=== PATIENT | female | born 1945 | race Caucasian/White ===

== ENCOUNTER 2022-12-31 17:20 | Emergency (ER) | payer OTHER, MEDICARE ==
--- OUTSIDE RECORDS SUMMARY | 2022-12-31 17:25 | XMS REPORT | Continuity of Care Document ---
:1945 Author Organization [facility] t Address [address] [place] [address] [place] [id number] Care Team Providers Name Role Phone Tere Sinha Primary Care Physician Tere Sinha Attending Clinician NIKKO LEVI Attending Clinician Unavailable EUGENE LINDER Attending Clinician Unavailable Eugene Linder Attending Clinician VISIT, NURSE COLE PRETTY Attending Clinician Unavailable Marine Galindo Attending Clinician Payers Payer Name Policy Type Policy Number Effective Date Expiration Date Harshad roach MEDICARE PART A [id number] 2010 AND B 00:00:00 Problems Condition Condition Condition Status Onset Resolution Last Treating Co mments Source Name Details Category Date Date Treatment Clinician Date Requires Requires Diagnosis Active 2022-09-08 Memoria vaccinatio vaccinatio 09-05 14:29:09 l n n Active 00:00: Balta 09/05/2022 00 Diagnosis 09/08/2022 [facility] [place] History of History Diagnosis Active 2022-09-08 Memoria - of - - 14:29:09 l pneumonia pneumonia 00:00: Jordyn rubi (context-d (context-d 00 ependent ependent category) category) Active 09/05/2022 Diagnosis 09/08/2022 [facility] 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 09-05 14:29:09 l (disorder) (disorder) 00:00: He rmann Active 00 09/05/2022 Diagnosis 09/08/2022 [facility] Group[facility] CTA CHEST CTA CHEST Diagnosis Active 2021-01-21 Memoria PULMONARY PULMONARY 01-18 10:53:00 l EMBOLISM EMBOLISM 00:00: Ben n Active 00 01/18/2021 [facility] I26.99 I26.99 Diagnosis Active 2021-01-19 Me moria OTHER OTHER 01-18 15:07:00 l PULMONARY PULMONARY 00:00: Herm greyson EMBOLISM EMBOLISM 00 WITHOUT WITHOUT Active 01/18/2021 [facility] LT HEART LT HEART Diagnosis Active 2019-02-14 Memoria CATH, CATH, 02-11 05:46:00 l RADIAL RADIAL 00:00: [place] APPROACH APPROACH 00 Active 02/11/2019 [facility] R06.02 - R06.02 - Diagnosis Active 2019-02-04 Memoria SHORTNESS SHORTNESS 02-03 11:39:00 l OF BREATH OF BREATH 00:01: Herm greyson Active 00 02/03/2019 ANTWON Rodriguez Hypercalce Hypercalc Problem Active 2022-09-08 Memoria michelle emia 08-11 14:29:09 l (disorder) (disorder) 00:00: He rmann Active 00 08/11/2014 Problem 09/08/2022 Data migrated from [employer] on 01/13/15.
Data migrated from [employer] on 12/08/14. Medical Group,Ifrah José M [facility] Anemia Anemia Problem Active 2022-09-08 Tal estelle (disorder) (disorder) 01-27 14:29:09 l Active 00:00: Balta 01/27/2013 00 Problem 09/08/2022 Data migrated from [employer] on 12/05/14. Medical Group,Ifrah José M [facility] Gastroesop Gastroeso Problem Active 2022-09-08 Memoria hageal phageal 03-16 14:29:09 l reflux reflux 00:00: [place] disease disease 00 (disorder) (disorder) Active 03/16/2012 Problem 09/08/2022 [facility] Medical Group, Ifrah Rodriguez M [facility] Hypertensi Hypertens Problem Active 2022-09-08 Memoria ve afia 03-16 14:29:09 l disorder, disorder, 00:00: Herm greysno systemic systemic 00 arterial arterial (disorder) (disorder) Active 03/16/2012 Problem 09/08/2022 Data migrated from [facility] on 12/05/14. 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 01:51:16 l disease disease Balta (disorder) (disorder) Resolved Problem 02/09/2022 Medical Group, Michael History of History Problem Active 2022-09-08 Memoria - high of - high 14:29:09 l risk risk [place] medication medication (context-d (context-d ependent ependent category) category) Active Problem 09/08/2022 Medical Group, Ifrah Rodriguez M [facility] Hyperlipid Hyperlipi Problem Active 2022-09-08 Memoria emia demia 14:29:09 l (disorder) (disorder) He rmann Active Problem 09/08/2022 Medical Group, Ifrah Rodriguez M [facility] 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 14:29:09 l (disorder) (disorder) He rmann Active Problem 09/08/2022 Medical Group, Ifrah Rodriguez [facility] Vitamin D Vitamin D Problem Active 2022-09-08 Memoria deficiency deficiency 14:29:09 l (disorder) (disorder) He rmann Active Problem 09/08/2022 Medical Group, Ifrah Rodriguez M [facility] OTHER OTHER Diagnosis Active 2021-01-21 Mem oria PULMONARY PULMONARY 10:53:00 l EMBOLISM EMBOLISM Ben n WITHOUT WITHOUT ACUTE C ACUTE C Active [facility] Depressive Depressiv Problem Resolve 2022-02-09 2022-02-09 Memoria disorder e disorder d 03-16 01:51:16 01:51:16 l (disorder) (disorder) 00:00: He rmann Resolved 00 03/16/2012 Problem 02/09/2022 Data migrated from [email or web address] on 12/05/14. Medical Group,Ifrah José History of Past Illness Condition Condition Condition Status Onset Resolution Last Treating Co mments Source Name Details Category Date Date Treatment Clinician Date History of History Diagnosis 2022-09-08 2022-09-08 Memoria - of - 09-05 14:29:09 14:29:09 l respirator respirator 20:07: He rmann y disease y disease 00 (context-d (context-d ependent ependent category) category) 09/05/2022 Diagnosis 09/08/2022 Medical Group Long-term Long-term Diagnosis 2022-09-08 2022-09-08 Memoria current current 09-05 14:29:09 14:29:09 l use of use of 19:35: [place] drug drug 00 therapy therapy (situation (situation ) ) 09/05/2022 Diagnosis 09/08/2022 Medical Group Gastroesop Gastroeso Diagnosis 2022-09-08 2022-09-08 Memoria hageal phageal 09-05 14:29:09 14:29:09 l reflux reflux 19:35: Balta disease disease 00 without without esophagiti esophagiti s s (disorder) (disorder) Diagnosis 09/08/2022 Medical Group Essential Essential Diagnosis 2022-09-08 2022-09-08 Memoria hypertensi hypertensi 09-05 14:29:09 14:29:09 l on on 19:35: Balta (disorder) (disorder) 00 09/05/2022 Diagnosis 09/08/2022 Medical Group Mild major Mild Diagnosis 2022-09-0820222022-09-08 Memoria depression major 09-05 14:29:09 14:29:09 l , single depression 19:35: Herm greyson episode , single 00 (disorder) episode (disorder) 09/05/2022 Diagnosis 09/08/2022 Medical Group Hypercalce Problem 2022-02-09 2022-02-09 Memoria michelle Hypercalce 02-06 01:51:16 01:51:16 l michelle 18:28: Balta 02/06/2022 00 02/09/2022 Medical Group Hyperparat Problem 2022-02-09 2022-02-09 Memoria hyroidism, Hyperparat 02-06 01:51:16 01:51:16 l unspecifie hyroidism, 18:28: He rmann d unspecifie 00 d 02/06/2022 02/09/2022 [facility] Body mass Body mass Problem 2022-02-09 2022-02-09 Memoria index index 02-06 01:51:16 01:51:16 l (BMI) (BMI) 18:27: [place] 23.0-23.9, 23.0-23.9, 00 adult adult 02/06/2022 02/09/2022 Medical Group Gastro-eso Gastro-es Problem 2022-02-09 2022-02-09 Memoria phageal ophageal 02-06 01:51:16 01:51:16 l reflux reflux 18:20: [place] disease disease 00 without without esophagiti esophagiti s s 02/06/2022 Medical Group Vitamin D Vitamin D Problem 2022-02-09 2022-02-09 Memoria deficiency deficiency 02-06 01:51:16 01:51:16 l , , 18:20: [place] unspecifie unspecifie 00 d d 02/06/2022 [facility] Essential Essential Problem 2022-02-09 2022-02-09 Memoria (primary) (primary) 02-06 01:51:16 01:51:16 l hypertensi hypertensi 18:20: He rmann on on 02/06/2022 Medical Group Major Major Problem 2022-02-09 2022-02-09 M emoria depressive depressive 02-06 01:51:16 01:51:16 l disorder, disorder, 18:20: Herm greyson single single 00 episode, episode, mild mild 02/06/2022 02/09/2022 Medical Group Other Other Problem 2022-02-09 2022-02-09 M emoria hyperlipid hyperlipid 02-06 01:51:16 01:51:16 l emia emia 18:20: Balta 02/06/2022 00 02/09/2022 Medical Group Other long Other Problem 2022-02-09 2022-02-09 Memoria term terminal carman 02-06 01:51:16 01:51:16 l (current) (current) 18:20: Herm greyson drug drug 00 therapy therapy 02/06/2022 02/09/2022 Medical Group Encounter Encounter Problem 2022-02-09 2022-02-09 Memoria for for 02-06 01:51:16 01:51:16 l general general 18:20: Balta adult adult 00 medical medical examinatio examinatio n without n without abnormal abnormal findings findings 02/06/2022 02/09/2022 Medical Group Unspecifie Unspecifi Problem 2021-07-23 2021-07-23 Memoria d symptoms ed - 01:49:34 01:49:34 l and signs symptoms 19:40: [place] nn involving and signs 00 the involving genitourin [facility] genit[facility]in [facility] 07/20/2021 Medical Group Allergies, Adverse Reactions, Alerts Allergy Allergy Status Severity Reaction(s) Onset Inactive Treating Comm ents Source Name Type Date Date Clinician codeine< codeine< Active Memori a sup>1</s sup>1</s 9-08 l up> up> 05:00: Balta 00 azithrom azithrom Active Memori a ycin<sup ycin<sup 9-08 l >2</sup> >2</sup> 05:00: Ben n 00 minocycl minocycl Active Memori a ine<sup> ine<sup> 9-08 l 3</sup> 3</sup> 05:00: Balta atorvast atorvast Active Memori a atin<sup atin<sup 9-08 l >4</sup> >4</sup> 05:00: Ben mejia coleseve coleseve Active Memori a marvin<sup> marvin<sup> 9-08 l 5</sup> 5</sup> 05:00: Balta ezetimib ezetimib Active Memori a e<sup>6< e<sup>6< 9-08 l /sup> /sup> 05:00: Balta rosuvast rosuvast Active Memori a atin<sup atin<sup 9-08 l >7</sup> >7</sup> 05:00: Ben mejia ezetimib ezetimib Active Theresaori a e-simvas e-simvas 9-08 l tatin<nunez tatin<nunez 05:00: Ben mejia p>8</sup p>8</sup 00 > > pitavast pitavast Active Memori a atin<sup atin<sup 9-08 l >9</sup> >9</sup> 05:00: Ben Valenzuela Minocycl Allergy Active Data [place] ine to 03-16 migrated [facility] 00:00: from GE e 00 Centricit y on 11/05/14. Originall y documente d as MINOCIN.D patricia migrated from [facility] on 11/05/14. Originall y documente d as MINOCIN.D patricia migrated from [facility] on 11/05/14. Originall y documente d as MINOCIN.D patricia migrated from [facility] on 11/05/14. Originall y documente d as MINOCIN. Social History Social Habit Start Date Stop Date Quantity Comments Source Alcohol intake 2022-02-20 2022-02-20 Current drinker [place] He alth 00:00:00 00:00:00 of alcohol (finding) Social History 2018-06-18 [facility] 17:10:35 Sex Ass[birth year] At [birth year] [place] [facility] 00:00:00 00:00:00 Smoking Status Start Date Stop Date Source Tobacco smoking status [facility] Medications Ordered Filled Start Stop Current Ordering Indication Dosage Frequency Signature Comments Components Source Medication Medication Date Date Medication? Clinician (SIG) Name Name olmesartan Yes = 1 tab, Mem oria 20 mg oral 8-03 PO, Daily, l tablet 03:56: # 90 tab, Ben n 00 1 Refill(s), Pharmacy: [facility] (Now [facility]), 160.02, cm, 02/06/22 13:09:00 CDT, Height, 60.682, kg, 02/06/22 13:09:00 CDT, Weight rosuvastati Yes = 1 tab, Me moria n 5 mg oral 8-03 PO, l tablet 03:56: Bedtime, # [place] nn 00 90 tab, 1 Refill(s), Pharmacy: [facility] (Now [facility]), 160.02, cm, 02/06/22 13:09:00 CDT, Height, 60.682, kg, 02/06/22 13:09:00 CDT, Weight esomeprazol Yes = 1 cap, Me moria e 40 mg 8-03 PO, Daily, l oral 03:56: # 90 Balta delayed 00 unknown release unit, 0 capsule Refill(s), Pharmacy: [facility] (Now [facility]), 160.02, cm, 02/06/22 13:09:00 CDT, Height, 60.682, kg, 02/06/22 13:09:00 CDT, Weight FLUoxetine 0 Yes = 1 cap, Mem oria 20 mg oral 8-03 PO, Daily, l capsule 03:56: # 90 Balta 00 unknown unit, 1 Refill(s), Pharmacy: [facility] (Now [facility]), 160.02, cm, 02/06/22 13:09:00 CDT, Height, 60.682, kg, 02/06/22 13:09:00 CDT, Weight hydrochloro Yes = 1 tab, Me moria thiazide 8-03 PO, BID, # l 12.5 mg 03:56: 180 tab, 1 Herm greyson oral tablet 00 Refill(s), Pharmacy: [facility] (Now [facility]), 160.02, cm, 02/06/22 13:09:00 CDT, Height, 60.682, kg, 02/06/22 13:09:00 CDT, Weight hydroCHLORO 0 Yes [facility] thiazide 02-08 Health (HYDRODiuri 00:00: l) 12.5 MG 00 tablet rosuvastati Yes [facility] n (Crestor) 02-08 Health 5 MG tablet 00:00: 00 esomeprazol Yes [facility] e (NexIUM) 02-[address] 00:00: capsule 00 FLUoxetine Yes [facility] (PROzac) 20 02-08 Health MG capsule 00:00: 00 olmesartan Yes [facility] (BENIcar) 02-08 Health 20 MG 00:00: tablet 00 metoprolol Yes 200 mg = 1 M emoria succinate 8- cap, PO, l 200 mg oral 18:07: BID, 0 Herm greyson capsule, 00 Refill(s) extended release metoprolol Yes [facility] succinate 603 Health XL 00:00: (Toprol-XL) 00 200 MG 24 hr tablet Cephalexin Yes 500 mg = 1 M emoria 500 MG Oral 1-12 cap, PO, l Capsule 19:46: BID, X 7 Ben n [Keflex] 00 day, # 14 cap, 0 Refill(s), Pharmacy: [facility] [id number], 160.02, cm, 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02, cm, 07/20/21 13:19: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, 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, 61.023, kg, 07/20/21 13:19: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, Weight olmesartan Yes 20 mg = 1 Me moria 20 mg oral 1-12 tab, PO, l tablet 19:43: Daily, # [place] 00 90 tab, 1 Refill(s), Pharmacy: [facility], 160.02, cm, 07/20/21 13:19: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, 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, 61.023, kg, 07/20/21 13:19: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, Weight rosuvastati Yes 5 mg = 1 Me moria n 5 mg oral 1-12 tab, PO, l tablet 19:43: Bedtime, # [place] nn 00 90 tab, 1 Refill(s), Pharmacy: [facility], 160.02, cm, 07/20/21 13:19: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, 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, 61.023, kg, 07/20/21 13:19: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, Weight Cephalexin 2020-07 Yes 500 mg = 1 M emoria 500 MG Oral 0-04 cap, PO, l Capsule 22:28: BID, X 7 Ben n [Keflex] 00 day, # 14 cap, 1 Refill(s), Pharmacy: [facility] [id number], 160.02, cm, 01/17/21 10:42:00 CDT, Height, 62.813, kg, 01/17/21 10:42:00 CDT, Weight Esomeprazol Yes = 1 cap, Me moria e 40 MG 7-13 PO, Daily, l Enteric 03:54: # 90 cap, [place] nn Coated 00 1 Capsule Refill(s), Pharmacy: [facility], 160.02, cm, 01/17/21 10:42:00 CDT, Height, 62.813, kg, 01/17/21 10:42:00 CDT, Weight FLUoxetine 0 Yes = 1 cap, Mem oria 20 mg oral 7-13 PO, Daily, l capsule 03:54: # 90 cap, [place] nn 00 1 Refill(s), Pharmacy: [facility], 160.02, cm, 01/17/21 10:42:00 CDT, Height, 62.813, kg, 01/17/21 10:42:00 CDT, Weight hydrochloro 0 Yes 12.5 mg = M emoria thiazide 7-13 1 tab, PO, l 12.5 mg 03:54: BID, # 180 Herm greyson oral tablet 00 tab, 1 Refill(s), Pharmacy: [facility], 160.02, cm, 01/17/21 10:42:00 CDT, Height, 62.813, kg, 01/17/21 10:42:00 CDT, Weight olmesartan Yes 20 mg = 1 Me moria 20 mg oral 7-13 tab, PO, l tablet 03:54: Daily, # [place] 00 90 tab, 1 Refill(s), Pharmacy: [facility], 160.02, cm, 01/17/21 10:42:00 CDT, Height, 62.813, kg, 01/17/21 10:42:00 CDT, Weight rosuvastati Yes 5 mg = 1 Me moria n 5 mg oral 7-12 tab, PO, l tablet 16:32: Bedtime, # [place] nn 00 30 tab, 0 Refill(s) PreserVisio 0 Yes 1 cap, PO, Memoria n 7-12 Daily, 0 l 15:49: Refill(s) [place] 00 PreserVisio 0 Yes 1 cap, PO, Memoria n 7-12 Daily, 0 l 15:49: Refill(s) Balta Esomeprazol Yes = 1 cap, Me moria e 40 MG 3-15 PO, Daily, l Enteric 22:10: # 90 cap, [place] nn Coated 00 2 Capsule Refill(s), Pharmacy: [facility], 160.02, cm, 07/15/20 11:06: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, Height, 62.869, kg, 07/15/20 11:06: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, Weight olmesartan 2020-0 Yes 20 mg = 1 Me moria 20 mg oral 1-07 tab, PO, l tablet 18:10: Daily, # [place] 00 90 tab, 1 Refill(s), Pharmacy: [facility], 160.02, cm, 07/15/20 11:06: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, Height, 62.869, kg, 07/15/20 11:06: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, Weight rosuvastati 0 Yes = 1 tab, Me moria n 10 mg 1-07 PO, l oral tablet 18:10: Bedtime, # Balta 00 90 tab, 1 Refill(s), Pharmacy: [facility], 160.02, cm, 07/15/20 11:06: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, Height, 62.869, kg, 07/15/20 11:06: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, Weight Esomeprazol 0 Yes = 1 cap, Me moria e 40 MG 1-07 PO, Daily, l Enteric 18:09: # 90 cap, [place] nn Coated 00 0 Capsule Refill(s), Pharmacy: [facility], 160.02, cm, 07/15/20 11:06: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, Height, 62.869, kg, 07/15/20 11:06: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, Weight FLUoxetine 2020-0 Yes = 1 cap, Mem oria 20 mg oral 1-07 PO, Daily, l capsule 18:09: # 90 cap, [place] nn 00 1 Refill(s), Pharmacy: [facility], 160.02, cm, 07/15/20 11:06: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, Height, 62.869, kg, 07/15/20 11:06: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, Weight hydrochloro 2020-0 Yes 12.5 mg = M emoria thiazide 1-07 1 tab, PO, l 12.5 mg 18:09: BID, # 180 Herm greyson oral tablet 00 tab, 1 Refill(s), Pharmacy: [facility], 160.02, cm, 07/15/20 11:06: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, Height, 62.869, kg, 07/15/20 11:06: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, Weight Metoprolol 0 Yes 150 mg = Mem oria Succinate 1-07 1.5 tab, l ER 100 mg 17:27: PO, BID, # He rmann oral 00 270 tab, 0 tablet, Refill(s) extended release hydrochloro 2019-0 Yes 12.5 mg = M emoria thiazide 7-14 1 tab, PO, l 12.5 mg 22:22: Daily, # Ben n oral tablet 00 90 tab, 1 Refill(s), Pharmacy: [facility], 160.02, cm, 01/15/20 11:10:00 CDT, Height, 62.5, kg, 01/15/20 11:10:00 CDT, Weight olmesartan 2019-0 Yes 20 mg = 1 Me moria 20 mg oral 7-14 tab, PO, l tablet 22:22: Daily, # Balta 00 90 tab, 1 Refill(s), Pharmacy: [facility], 160.02, cm, 01/15/20 11:10:00 CDT, Height, 62.5, kg, 01/15/20 11:10:00 CDT, Weight rosuvastati 2019-0 No = 1 tab, Me moria n 10 mg 7-10 PO, l oral tablet 21:30: Bedtime, # Balta 00 90 tab, 1 Refill(s), Pharmacy: [facility], 160.02, cm, 01/15/20 11:10:00 CDT, Height, 62.5, kg, 01/15/20 11:10:00 CDT, Weight Hydrochloro 2020-0 Yes 1 tab, PO, Memoria thiazide 7-09 Daily, # l 12.5 MG / 22:34: 90 tab, 1 Her jackson Olmesartan 00 Refill(s), [facility] Pharmacy: 20 MG Oral [facility], 160.02, cm, 01/15/20 11:10:00 CDT, Height, 62.5, kg, 01/15/20 11:10:00 CDT, Weight Cephalexin 2019-0 Yes 500 mg = 1 M emoria 500 MG Oral 7-09 cap, PO, l Capsule 16:51: BID, X 7 Ben n [Keflex] 00 day, # 14 cap, 1 Refill(s) metoprolol 2020-0 Yes 50 mg = 1 Me moria 50 mg oral 7-09 tab, PO, l tablet, 16:12: BID, 0 [place] extended 00 Refill(s) release Esomeprazol 2020-0 Yes 40 mg = 1 M emoria e 40 MG 1-06 cap, PO, l Enteric 18:58: Daily, # Ben n Coated 48 90 cap, 1 Capsule Refill(s), [Nexium] Pharmacy: [facility] FLUoxetine 2020-0 Yes 20 mg = 1 Me moria 20 mg oral 1-06 cap, PO, l capsule 18:58: Daily, # Ben n 39 90 cap, 1 Refill(s), Pharmacy: [facility] olmesartan 2020-0 Yes 40 mg = 1 Me moria 40 mg oral 1-06 tab, PO, l tablet 18:58: Daily, # [place] 27 90 tab, 1 Refill(s), Pharmacy: [facility] Hydrochloro 2020-0 Yes 12.5 mg = M emoria thiazide 1-06 1 cap, PO, l 12.5 MG 18:58: Daily, # Ben n Oral 23 90 cap, 1 Capsule Refill(s), Pharmacy: [facility] rosuvastati 2020-0 Yes 10 mg = 1 M emoria n 10 mg 1-06 tab, PO, l oral tablet 18:58: Bedtime, # [place] 00 90 tab, 1 Refill(s), Pharmacy: [facility] olmesartan 2018-07 Yes 40 mg = 1 Me moria 40 mg oral 1-20 tab, PO, l tablet 15:48: Daily, # [place] 00 90 tab, 0 Refill(s), Pharmacy: [place] [id number] Hydrochloro 2018-07 Yes 12.5 mg = M emoria thiazide 1-20 1 cap, PO, l 12.5 MG 15:47: Daily, # Ben n Oral 00 90 cap, 0 Capsule Refill(s), Pharmacy: [place] [id number] NS 1,000 mL No 1,000 mL, M emoria 02-14 Rate: 75 l 13:48: ml/hr, [place] 00 Infuse over: 13.3 hr, Route: IV, Dosing Weight 61.369 kg, Total Volume: 1,000, Start date: 02/14/19 8:48:00 CDT, Duration: 30 day, Stop date: 03/16/19 8:47:00 CDT, 1.67, m2, 0 Acetaminoph 2018- No Notes: Tal estelle en 325 MG / 02-14 (Same as: l Hydrocodone 13:48: [place] nn Bitartrate 00 325/5) Do 5 MG Oral not exceed Tablet 4gm/day of [[place] acetaminop 5/325] hen. metoprolol Yes 50 mg = 1 Me moria 50 mg oral 02-14 tab, PO, l tablet, 13:44: Daily, # Ben n extended 00 30 tab, 1 release Refill(s), Pharmacy: [facility] #[id number] Aspirin Yes 81 mg, PO, Tal estelle -09 Daily, 0 l 11:11: Refill(s) Balta 00 aspirin 0 Yes 81 mg, PO, Tal estelle -09 Daily, 0 l 11:11: Refill(s) Balta 00 Sodium No 1,000 mL, Memori a Chloride 02-14 Rate: 25 l 0.9% IV 10:43: ml/hr, [place] 1,000 mL 00 Infuse over: 40 hr, Route: IV, Dosing Weight 61.369 kg, Total Volume: 1,000, Start date: 02/14/19 5:43:00 CDT, Duration: 30 day, Stop date: 03/16/19 5:42:00 CDT, 1.67, m2, 0 simvastatin 2018- Yes 40 mg = 1 M emoria 40 mg oral 7-12 tab, PO, l tablet 17:08: Bedtime, # [place] nn 03 90 tab, 1 Refill(s), Pharmacy: [facility] Hydrochloro 2018-0 Yes 1 tab, PO, Memoria thiazide 7-12 Daily, # l 12.5 MG / 17:07: 90 tab, 1 Her jackson Olmesartan 58 Refill(s), [facility]acy: 40 MG Oral [facility] FLUoxetine Yes 20 mg = 1 Me moria 20 mg oral 7-12 cap, PO, l capsule 17:07: Daily, Lori Contreras n 55 90 cap, 1 Refill(s), Pharmacy: [facility] Esomeprazol Yes 40 mg = 1 M emoria e 40 MG 7-12 cap, PO, l Enteric 17:07: Daily, # Ben n Coated 53 90 cap, 1 Capsule Refill(s), [Nexium] Pharmacy: [facility] amLODIPine Yes 5 mg = 1 Mem oria 5 mg oral 7-12 tab, PO, l tablet 17:07: Daily, Lori Gifford 49 90 tab, 1 Refill(s), Pharmacy: [facility] Vitamin D3 Yes 5,000 Memori a 5000 intl 7-12 IntlUnit = l units oral 16:09: 1 tab, PO, H ermann tablet 00 Daily, 0 Refill(s) Vitamin D3 Yes 5,000 Memori a 5000 intl 7-12 IntlUnit = l units oral 16:09: 1 tab, PO, H ermann tablet 00 Daily, 0 Refill(s) CoQ10 Yes 300 mg, Memoria 7-12 PO, Daily, l 16:09: 0 [place] 00 Refill(s) simvastatin 2017-07 Yes 40 mg = 1 M emoria 40 mg oral 2-13 tab, PO, l tablet 06:42: Bedtime, Lori Barahona nn 57 90 tab, 1 Refill(s), Pharmacy: [facility] Hydrochloro 2017-07 Yes 1 tab, PO, Memoria thiazide 2-13 Daily, # l 12.5 MG / 06:42: 90 tab, 1 Her jackson Olmesartan 54 Refill(s), [facility] Pharmacy: 40 MG Oral [facility] FLUoxetine 2017-07 Yes 20 mg = 1 Me moria 20 mg oral 2-13 cap, PO, l capsule 06:42: Daily, Lori Contreras n 52 90 cap, 1 Refill(s), Pharmacy: [facility] Esomeprazol 2017-07 Yes 40 mg = 1 M emoria e 40 MG 2-13 cap, PO, l Enteric 06:42: Daily, Lori Contreras n Coated 50 90 cap, 1 Capsule Refill(s), [Nexium] [facility] [facility] amLODIPine 2017-07 Yes 5 mg = 1 Mem oria 5 mg oral 2-13 tab, PO, l tablet 06:42: Daily, Lori Gifford 48 90 tab, 1 Refill(s), Pharmacy: [facility] simvastatin Yes 40 mg = 1 M emoria 40 mg oral 4-25 tab, PO, l tablet 19:35: Bedtime, Lori plasencia 37 90 tab, 0 Refill(s), Pharmacy: [facility] Fluoxetine Yes 20 mg = 1 Me moria 20 MG Oral 4-25 cap, PO, l Capsule 19:35: Daily, Lori mejia [Prozac] 34 90 cap, 0 Refill(s), Pharmacy: [facility] Esomeprazol Yes 40 mg = 1 M emoria e 40 MG 4-25 cap, PO, l Enteric 19:35: Daily, Lori mejia Coated 32 90 cap, 0 Capsule Refill(s), [Nexium] Pharmacy: [facility] Hydrochloro Yes 1 tab, PO, Memoria thiazide 4-25 Daily, # l 12.5 MG / 19:34: 30 tab, 1 Her jackson Olmesartan 00 Refill(s), medoxomil Pharmacy: 40 MG Oral [facility] Immunizations Ordered Immunization Filled Immunization Date Status Commen ts Source Name Name pneumococcal 2022-09-05 Completed [facility] 23-valent 20:41:00 [place] vaccine<sup>1</sup> influenza virus 2021-07-20 Completed [facility], 20:03:00 [place] inactivated<sup>1</s up> influenza virus 2021-07-20 Completed [facility] vaccine, 20:03:00 [place] inactivated<sup>3</s up> XJLH-KbJ-9MRLKO-19mR 2020-10-13 Completed [facility] [place] NA-1273vaxMODERNA<nunez 00:00:00 Herm greyson p>1</sup> VAYJ-ZiU-4GBKEO-19mR 2020-10-13 Completed [facility] NA-1273vaxMODERNA<nunez 00:00:00 Herm greyson p>5</sup> DAUS-ZkH-3BSEAS-mR 2020-10-13 Completed Tal [facility] NA-1273vaxMODERNA<nunez 00:00:00 Herm greyson p>7</sup> HTCW-UwX-3MGSGU-19mR 2020-09-15 Completed Tal [facility] NA-1273vaxMODERNA<nunez 00:00:00 Herm greyson p>2</sup> NYYJ-QtX-0HWHVX-mR 2020-09-15 Completed Tal [facility] NA-1273vaxMODERNA<nunez 00:00:00 Herm greyson p>6</sup> RPLH-RdY-9VUKMM-mR 2020-09-15 Completed Tal rial NA-1273vaxMODERNA<nunez 00:00:00 Herm greyson p>8</sup> influenza virus 2020-07-15 Completed [facility] vaccine, 18:13:00 [place] inactivated<sup>3</s up> influenza virus 2020-07-15 Completed [facility] vaccine, 18:13:00 [place] inactivated<sup>1</s up> influenza virus 2020-07-15 Completed [facility] vaccine, 18:13:00 [place] inactivated<sup>2</s up> influenza virus 2020-07-15 Completed [facility] vaccine, 18:13:00 [place] inactivated<sup>4</s up> influenza virus 2019-06-08 Completed [facility] vaccine, 00:00:00 [place] inactivated<sup>4</s up> influenza virus 2019-06-08 Completed [facility] vaccine, 00:00:00 [place] inactivated<sup>1</s up> influenza virus 2019-06-08 Completed [facility] vaccine, 00:00:00 [place] inactivated<sup>2</s up> influenza virus 2019-06-08 Completed [facility] vaccine, 00:00:00 [place] inactivated<sup>3</s up> influenza virus 2019-06-08 Completed [facility] vaccine, 00:00:00 [place] inactivated<sup>5</s up> influenza virus 2018-06-18 Completed [facility] vaccine, 18:16:00 [place] inactivated<sup>5</s up> influenza virus 2018-06-18 Completed [facility] vaccine, 18:16:00 [place] inactivated<sup>1</s up> influenza virus 2018-06-18 Completed [facility] vaccine, 18:16:00 [place] inactivated<sup>2</s up> influenza virus 2018-06-18 Completed [facility] vaccine, 18:16:00 [place] inactivated<sup>3</s up> influenza virus 2018-06-18 Completed [facility] vaccine, 18:16:00 [place] inactivated<sup>4</s up> influenza virus 2018-06-18 Completed [facility] vaccine, 18:16:00 [place] inactivated<sup>6</s up> pneumococcal 2015-02-22 Completed [facility] 13-valent 21:18:00 [place] vaccine<sup>6</sup> pneumococcal 2015-02-22 Completed [facility] 13-valent 21:18:00 [place] vaccine<sup>2</sup> pneumococcal 2015-02-22 Completed [facility] 13-valent 21:18:00 [place] vaccine<sup>3</sup> pneumococcal 2015-02-22 Completed [facility] 13-valent 21:18:00 [place] vaccine<sup>4</sup> pneumococcal 2015-02-22 Completed [facility] 13-valent 21:18:00 [place] vaccine<sup>1</sup> pneumococcal 2015-02-22 Completed [facility] 13-valent 21:18:00 [place] vaccine<sup>7</sup> pneumococcal 2015-02-22 Completed [facility] 13-valent 21:18:00 [place] vaccine<sup>9</sup> Hx influenza 2011-03-14 Completed [facility] vaccine-unspecified< 20:47:28 Herm greyson sup>7</sup> Hx influenza 2011-03-14 Completed [facility] vaccine-unspecified< 20:47:28 Herm greyson sup>3</sup> Hx influenza 2011-03-14 Completed [facility] vaccine-unspecified< 20:47:28 Herm greyson sup>4</sup> Hx influenza 2011-03-14 Completed [facility] vaccine-unspecified< 20:47:28 Herm greyson sup>5</sup> Hx influenza 2011-03-14 Completed [facility] vaccine-unspecified< 20:47:28 Herm greyson sup>2</sup> Hx influenza 2011-03-14 Completed [facility] vaccine-unspecified< 20:47:28 Herm greyson sup>8</sup> Hx influenza 2011-03-14 Completed [facility] vaccine-unspecified< 20:47:28 Herm greyson sup>10</sup> pneumococcal 2010-12-30 Completed [facility] 23-valent 20:47:28 [place] vaccine<sup>8</sup> pneumococcal 2010-12-30 Completed [facility] 23-valent 20:47:28 [place] vaccine<sup>4</sup> pneumococcal 2010-12-30 Completed [facility] 23-valent 20:47:28 [place] vaccine<sup>5</sup> pneumococcal 2010-12-30 Completed [facility] 23-valent 20:47:28 [place] vaccine<sup>6</sup> pneumococcal 2010-12-30 Completed [facility] 23-valent 20:47:28 [place] vaccine<sup>3</sup> pneumococcal 2010-12-30 Completed [facility] 23-valent 20:47:28 [place] vaccine<sup>9</sup> pneumococcal 2010-12-30 Completed [facility] 23-valent 20:47:28 [place] vaccine<sup>2</sup> Vital Signs Vital Name Observation Time Observation Value Comments Source Temperature Oral (F) 2022-09-05 19:16:00 97.8 F [facility] [place] Heart Rate 2022-09-05 19:16:00 [facility] [place] Systolic (mm Hg) 2022-09-05 19:16:00 Tal rial [place] Diastolic (mm Hg) 2022-09-05 19:16:00 Mem orial [place] Height 2022-09-05 19:16:00 160.02 cm [facility] [place] Weight 2022-09-05 19:16:00 [facility] [place] BMI Calculated 2022-09-05 19:16:00 Mem[facility] al [place] Temperature Oral (F) 2022-02-06 18:09:00 98.2 F [facility] [place] Heart Rate 2022-02-06 18:09:00 [facility] [place] Systolic (mm Hg) 2022-02-06 18:09:00 Tal rial [place] Diastolic (mm Hg) 2022-02-06 18:09:00 Mem o[facility] [place] Height 2022-02-06 18:09:00 160.02 cm [facility] [place] Weight 2022-02-06 18:09:00 [facility] [place] BMI Calculated 2022-02-06 18:09:00 [facility] [place] Heart Rate 2021-07-20 19:19:00 [facility] [place] Systolic (mm Hg) 2021-07-20 19:19:00 Tal rial [place] Diastolic (mm Hg) 2021-07-20 19:19:00 Mem o[facility] [place] Height 2021-07-20 19:19:00 160.02 cm [facility] [place] Weight 2021-07-20 19:19:00 [facility] [place] BMI Calculated 2021-07-20 19:19:00 [facility] [place] Systolic (mm Hg) 2021-01-17 15:42:00 Tal rial [place] Diastolic (mm Hg) 2021-01-17 15:42:00 Mem orial [place] Heart Rate 2021-01-17 15:42:00 [facility] [place] Temperature Oral (F) 2021-01-17 15:42:00 98.3 F [facility] [place] Height 2021-01-17 15:42:00 160.02 cm [facility] [place] Weight 2021-01-17 15:42:00 [facility] [place] BMI Calculated 2021-01-17 15:42:00 [facility] [place] Systolic (mm Hg) 2020-07-15 16:59:00 Tal rial [place] Diastolic (mm Hg) 2020-07-15 16:59:00 Mem orial [place] Heart Rate 2020-07-15 16:59:00 [facility] [place] Temperature Oral (F) 2020-07-15 16:59:00 98.5 F [facility] [place] Height 2020-07-15 16:59:00 160.02 cm [facility] [place] Weight 2020-07-15 16:59:00 [facility] [place] BMI Calculated 2020-07-15 16:59:00 [facility] al [place] Systolic (mm Hg) 2020-01-15 16:10:00 Tal rial [place] Diastolic (mm Hg) 2020-01-15 16:10:00 Mem o[facility] [place] Heart Rate 2020-01-15 16:10:00 [facility] [place] Respitory Rate 2020-01-15 16:10:00 [facility] [place] Temperature Oral (F) 2020-01-15 16:10:00 98.4 F [facility] [place] Height 2020-01-15 16:10:00 160.02 cm [facility] [place] Weight 2020-01-15 16:10:00 [facility] [place] BMI Calculated 2020-01-15 16:10:00 [facility] [place] Systolic (mm Hg) 2019-07-14 17:06:00 Tal rial [place] Diastolic (mm Hg) 2019-07-14 17:06:00 Mem orial [place] Heart Rate 2019-07-14 17:06:00 [facility] [place] Temperature Oral (F) 2019-07-14 17:06:00 98.1 F [facility] [place] Height 2019-07-14 17:06:00 161.29 cm [facility] [place] Weight 2019-07-14 17:06:00 [facility] [place] BMI Calculated 2019-07-14 17:06:00 [facility] [place] Respitory Rate 2019-02-14 16:15:00 [facility] [place] Systolic (mm Hg) 2019-02-14 16:04:00 Tal rial [place] Diastolic (mm Hg) 2019-02-14 16:04:00 Mem orial [place] Respitory Rate 2019-02-14 16:04:00 Mem[facility] [place] Systolic (mm Hg) 2019-02-14 15:34:00 Tal rial [place] Diastolic (mm Hg) 2019-02-14 15:34:00 Mem orial [place] Respitory Rate 2019-02-14 15:34:00 [facility] [place] Systolic (mm Hg) 2019-02-14 15:19:00 Tal rial [place] Diastolic (mm Hg) 2019-02-14 15:19:00 Mem orial [place] Weight 2019-02-14 10:46:00 [facility] [place] BMI Calculated 2019-02-14 10:46:00 [facility] al [place] Height 2019-02-14 10:46:00 161.29 cm [facility] [place] BMI Calculated 2019-01-17 16:01:00 [facility] [place] Weight 2019-01-17 16:01:00 [facility] [place] Systolic (mm Hg) 2019-01-17 16:01:00 Tal rial [place] Diastolic (mm Hg) 2019-01-17 16:01:00 Mem orial [place] Height 2019-01-17 16:01:00 161.29 cm [facility] [place] Heart Rate 2019-01-17 16:01:00 [facility] [place] Temperature Oral (F) 2019-01-17 16:01:00 98.0 F [facility] [place] BMI Calculated 2018-06-18 17:05:00 [facility] [place] Weight 2018-06-18 17:05:00 [facility] [place] Height 2018-06-18 17:05:00 160.02 cm [facility] [place] Heart Rate 2018-06-18 17:05:00 [facility] [place] Temperature Oral (F) 2018-06-18 17:05:00 98.4 F [facility] [place] Systolic (mm Hg) 2018-06-18 17:05:00 Tal rial [place] Diastolic (mm Hg) 2018-06-18 17:05:00 Mem orial [place] BMI Calculated 2017-12-18 14:05:00 [facility] [place] Weight 2017-12-18 14:05:00 [facility] [place] Height 2017-12-18 14:05:00 160.02 cm [facility] [place] Temperature Oral (F) 2017-12-18 14:05:00 98.3 F [facility] [place] Systolic (mm Hg) 2017-12-18 14:05:00 Tal rial [place] Diastolic (mm Hg) 2017-12-18 14:05:00 Mem orial [place] Heart Rate 2017-12-18 14:05:00 [facility] [place] Systolic (mm Hg) 2017-10-31 19:38:00 Tal rial [place] Diastolic (mm Hg) 2017-10-31 19:38:00 Mem orial [place] BMI Calculated 2017-10-31 19:10:00 [facility] [place] Weight 2017-10-31 19:10:00 [facility] [place] Height 2017-10-31 19:10:00 160.02 cm [facility] [place] Systolic (mm Hg) 2017-10-31 19:10:00 Tal rial [place] Diastolic (mm Hg) 2017-10-31 19:10:00 Mem orial [place] Temperature Oral (F) 2017-10-31 19:10:00 98.0 F [facility] [place] Heart Rate 2017-10-31 19:10:00 [facility] [place] Procedures Procedure Date / Time Performed Performing Clinician [facility] e Colonoscopy<sup>1</sup> 2022-03-20 05:00:00 Tal rial [place] Bone density 2017-12-18 05:00:00 [facility] Her jackson scan<sup>2</sup> Ultrasound, abdominal, 2016-04-19 05:00:00 Isatu Gifford real time with image documentation; complete Mammogram<sup>3</sup> 2014-08-19 06:00:00 Memori al [place] Tonsillectomy [facility] Tubal ligation [facility] Encounters Start End Encounter Admission Attending Care Care Encounter Source Date/Time Date/Time Type Type Clinicians Facility Department ID 2022-03-[address] [facility] [id number] [place] 19:40:28 [id number] [facility] 2022-03-[address] [facility] [id number] [place] 13:10:04 [id number] [facility] 2022-02-[address] [facility] [id number] [place] 13:26:21 [id number] [facility] 2022-02-[address] [facility] [id number] [place] 10:37:41 [id number] [facility] 2022-02-[address] [facility] [id number] [place] 11:32:51 [id number] [facility] 2023-03-06 2023-03-06 Outpatient MHIE IE [id number] Memoria 13:00:00 13:00:00 23 ivy Gifford 2022-09-05 2022-09-06 Outpatient [facility] [id number] Memoria 19:00:00 05:59:59 Medicine 21 l Calixto Contreras n 2022-09-05 2022-09-05 Outpatient Tere Sinha [facility] [id number] 13:00:00 23:59:59 Hla 21 2022-09-05 2022-09-05 Outpatient MHIE MHIE [id number] Memoria 13:00:00 13:00:00 21 ivy Gifford 2022-08-30 2022-08-31 Between [facility] [id number] Memoria 14:17:14 14:17:14 Visit Medicine 17 l Calixto Contreras n 2022-08-30 2022-08-31 Outpatient MG MG [id number] 08:17:14 08:17:14 17 2022-08-29 2022-08-29 Outpatient MHIE MHIE [id number] Memoria 07:15:00 07:15:00 22 ivy Balta 2022-03-20 2022-03-20 Outpatient GURMEET [facility] [id number] [place] 08:00:00 08:00:00 [facility] 2022-02-20 2022-02-20 Office RONALD Levi [id number] [place] 13:00:00 14:34:26 Visit Nikko STANTON [id number] [facility] [id number] 2022-02-06 2022-02-07 Outpatient nullFlavo [facility] 3 [id number] Memoria 18:00:00 04:59:59 r Medicine 19 l De Luna Ben mejia 2022-02-06 2022-02-06 Outpatient Tere Sinha [facility] [id number] 13:00:00 23:59:59 Hla 19 2022-02-06 2022-02-06 Outpatient MHIE MHIE [id number] Memoria 13:00:00 13:00:00 19 ivy Balta 2022-02-04 2022-02-05 Between nullFlavo [facility] [id number] Memoria 15:25:57 15:25:57 Visit r Medicine 16 l Calixto mejia 2022-02-04 2022-02-05 Outpatient [facility] MG [id number] 10:25:57 10:25:57 16 2022-01-19 2022-01-19 Outpatient MHIE MHIE [id number] Memoria 07:15:00 07:15:00 20 ivy Balta 2021-07-20 2021-07-21 Outpatient nullFlavo [facility] 3 [id number] Memoria 19:00:00 05:59:59 r Medicine 18 l De Luna Ben mejia 2021-07-20 2021-07-20 Outpatient Tere Sinha MG MG [id number] 13:00:00 23:59:59 Hla 18 2021-07-20 2021-07-20 Outpatient MHIE MHIE [id number] Memoria 13:00:00 13:00:00 18 ivy Balta 2021-07-15 2021-07-16 Between nullFlavo [facility] [id number] Memoria 05:32:27 05:32:27 Visit r Medicine 15 l Calixto mejia 2021-07-14 2021-07-15 Outpatient MHMG MHMG [id number] 23:32:27 23:32:27 15 2021-04-11 2021-04-13 Phone nullFlavo [facility] [id number] Memoria 14:35:03 04:59:59 Message r Medicine 05 ivy VickersDe Luna Ben mejia 2021-04-11 2021-04-12 Outpatient MHMG MHMG [id number] 09:35:03 23:59:59 05 2021-01-21 2021-01-22 Outpatient nullFlavo [facility] [id number] Memoria 15:40:00 04:59:00 r [place] 13 [facility] 2021-01-21 2021-01-21 Outpatient MANOHAR [facility] MED [id number] MHBL 10:40:00 23:59:00 EUGENE 2021-01-21 2021-01-21 Outpatient ANTWON LinderPL MHPL [id number] 10:40:00 23:59:00 Eugene Bal [facility] 2021-01-17 2021-01-18 Outpatient nullFlavo [facility] Family 3 [id number] Memoria 15:40:00 04:59:59 r Medicine 16 ivy VickersDe Luna Ben mejia 2021-01-17 2021-01-17 Outpatient Tere Sinha MG MG [id number] 10:40:00 23:59:59 Hla 16 2021-01-17 2021-01-17 Outpatient MHIE MHIE [id number] Memoria 10:40:00 10:40:00 16 ivy Gifford 2021-01-13 2021-01-14 Between nullFlavo [facility] Family [id number] Memoria 03:22:56 03:22:56 Visit r Medicine 12 ivy mejia 2021-01-12 2021-01-13 Outpatient MHMG MHMG [id number] 22:22:56 22:22:56 12 2021-01-10 2021-01-10 Outpatient MHIE MHIE [id number] Memoria 07:15:00 07:15:00 17 ivy Gifford 2020-09-20 2020-09-22 Phone nullFlavo [facility] [id number] Memoria 16:39:54 04:59:59 Message r Medicine 04 ivy mejia 2020-09-20 2020-09-21 Outpatient MHMG MHMG [id number] 11:39:54 23:59:59 04 2020-09-13 2020-09-14 Between nullFlavo [facility] Family [id number] Memoria 21:37:19 21:37:19 Visit r Medicine 10 ivy Contreras n 2020-09-13 2020-09-14 Outpatient [facility] MG [id number] 15:37:19 15:37:19 10 2020-07-15 2020-07-16 Outpatient nullFlavo MG Family 3 [id number] Memoria 17:00:00 05:59:59 r Medicine 15 l Calixto Contreras n 2020-07-15 2020-07-15 Outpatient Tere Sinha [facility] [id number] 11:00:00 23:59:59 Hla 15 2020-07-15 2020-07-15 Outpatient MHIE IE [id number] Memoria 11:00:00 11:00:00 15 ivy Gifford 2020-07-11 2020-07-12 Between nullFlavo [facility] Family [id number] Memoria 18:20:30 18:20:30 Visit r Medicine 09 ivy Contreras jackie 2020-07-11 2020-07-12 Between nullFlavo [facility] Family [id number] Memoria 18:20:03 18:20:03 Visit r Medicine 08 ivy Contreras jackie 2020-07-11 2020-07-12 Outpatient [facility] MG [id number] 12:20:30 12:20:30 09 2020-07-11 2020-07-12 Outpatient [facility] MG [id number] 12:20:03 12:20:03 08 2020-01-20 2020-01-22 Phone nullFlavo [facility] [id number] Memoria 18:31:31 04:59:59 Message r Medicine 03 ivy mejia 2020-01-20 2020-01-21 Outpatient MHMG MHMG [id number] 13:31:31 23:59:59 03 2020-01-16 2020-01-18 Phone nullFlavo [facility] Family [id number] Memoria 16:00:01 04:59:59 Message r Medicine 02 ivy mejia 2020-01-16 2020-01-17 Outpatient MHMG MHMG [id number] 11:00:01 23:59:59 02 2020-01-15 2020-01-16 Outpatient nullFlavo [facility] Family 3 [id number] Memoria 16:00:00 04:59:59 r Medicine 14 ivy mejia 2020-01-15 2020-01-15 Outpatient Tere Sinha [facility] [id number] 11:00:00 23:59:59 Hla 14 2020-01-15 2020-01-15 Outpatient MHIE MHIE [id number] Memoria 11:00:00 11:00:00 14 ivy Gifford 2020-01-09 2020-01-10 Between nullFlavo [facility] [id number] Memoria 00:42:09 00:42:09 Visit r Medicine 05 ivy Contreras jackie 2020-01-08 2020-01-09 Outpatient MHMG MHMG [id number] 19:42:09 19:42:09 05 2019-07-14 2019-07-15 Outpatient nullFlavo [facility] Family 3 [id number] Memoria 17:00:00 05:59:59 r Medicine 13 ivy Contreras jackie 2019-07-14 2019-07-14 Outpatient Tere Sinha MG [facility] [id number] 11:00:00 23:59:59 Hla 13 2019-07-14 2019-07-14 Outpatient MHIE MHIE [id number] Memoria 11:00:00 11:00:00 13 ivy Gifford 2019-05-27 2019-05-29 Phone nullFlavo [facility] [id number] Memoria 17:43:28 05:59:59 Message r Medicine 01 ivy VickersDe Lunaanne-marie Contreras jackie 2019-05-27 2019-05-28 Outpatient MHMG MHMG [id number] 11:43:28 23:59:59 2019-02-14 2019-02-14 Bedded nullFlavo [facility] [id number] Memoria 10:37:00 17:20:00 Outpatient r [place] 01 ivy [facility] 2019-02-14 2019-02-14 Outpatient ECTOR Linder MHPL [id number] 05:37:00 12:20:00 Eugene Bull [facility] 2019-02-04 2019-02-05 Outpt Diag nullFlavo [facility] [id number] Memoria 16:30:00 04:59:00 Services r Outpatient 01 ivy Gifford [place] 2019-02-04 2019-02-04 Outpatient RAVEN Linder MHOIP [id number] 11:30:00 23:59:00 Eugene Garland 2019-01-17 2019-01-18 Outpatient nullFlavo [facility] Family 3 [id number] Memoria 16:00:00 04:59:59 r Medicine 12 ivy Contreras jackie 2019-01-17 2019-01-17 Outpatient Tere SinhaMG [facility] [id number] 11:00:00 23:59:59 Hla 12 2019-01-17 2019-01-17 Outpatient MHIE MHIE [id number] Memoria 11:00:00 11:00:00 12 ivy Balta 2018-06-18 2018-06-19 Outpatient nullFlavo MG Family 3 [id number] Memoria 17:00:00 05:59:59 r Medicine 10 ivy Contreras jackie 2018-06-18 2018-06-18 Outpatient Tere Sinha [facility] [id number] 11:00:00 23:59:59 Hla 10 2018-06-18 2018-06-18 Outpatient MHIE MHIE [id number] Memoria 11:00:00 11:00:00 10 ivy Balta 2017-12-18 2017-12-19 Outpatient nullFlavo MG Family 3 [id number] Memoria 19:30:00 04:59:59 r Medicine 11 ivy Contreras jackie 2017-12-18 2017-12-19 Outpatient nullFlavo MG Family 3 [id number] Memoria 14:15:00 04:59:59 r Medicine 09 ivy Contreras jackie 2017-12-18 2017-12-18 Outpatient VISIT, MG MG [id number] 14:30:00 23:59:59 NURSE STRB China PRETTY 2017-12-18 2017-12-18 Outpatient Tere Sinha [facility] [id number] 09:15:00 23:59:59 Hla 09 2017-12-18 2017-12-18 Outpatient MHIE MHIE [id number] Memoria 14:30:00 14:30:00 11 ivy Gifford 2017-12-18 2017-12-18 Outpatient MHIE IE [id number] Memoria 09:15:00 09:15:00 09 ivy Gifford 2017-10-31 2017-11-01 Outpatient nullFlavo [facility] 3 [id number] Memoria 19:15:00 04:59:59 r Medicine 08 ivy De Luna Ben mejia 2017-10-31 2017-10-31 Outpatient Josie [facility] [id number] 14:15:00 23:59:59 Marine 08 2017-10-31 2017-10-31 Outpatient MHIE IE [id number] Memoria 14:15:00 14:15:00 08 ivy Gifford 2017-04-30 2017-04-30 Outpatient MHIE MHIE [id number] Memoria 14:30:00 14:30:00 06 ivy Gifford 2016-10-17 2016-10-17 Outpatient MHIE IE [id number] Memoria 13:15:00 13:15:00 05 ivy Gifford 2016-04-19 2016-04-19 Outpatient [id number] Memoria 09:00:14 23:59:59 [id number] 81.2000 [facility] 2016-04-19 Outpatient nullFlavo [facility] [id number] Memoria 09:00:14 09:00:14 r ivy Gifford 2016-03-10 2016-03-10 Outpatient MHIE IE [id number] Memoria 15:15:00 15:15:00 04 ivy Gifford 2015-08-27 2015-08-27 Outpatient MHIE IE [id number] Memoria 11:15:00 11:15:00 03 ivy Gifford 2015-07-26 2015-07-26 Outpatient MHIE MHIE [id number] Memoria 15:00:00 15:00:00 02 ivy Gifford 2014-08-10 2014-08-11 Outpt Diag nullFlavo [facility] [id number] Memoria 18:44:00 05:59:00 Services r Outpatient 00 ivy Gifford [place] 2014-08-10 2014-08-10 Outpatient Tere Sinha [id number] 12:44:00 23:59:00 Hla [id number] 01 Results Test Description Test Time Test Comments Results Result Comments Source CHEM PANEL 2021-01-21 15:51:00 Test Item Value Reference Range Interpretation Comme nts Creatinine Lvl (test code = Creatinine Lvl) 0.50 0.50-1.40 [facility] [employer] [id number] 15:51:00 Test Item Value Reference Range Interpretation Comments eGFR (test code = eGFR) 95 [facility] [employer] [id number] 13:36:00 Test Item Value Reference Range Interpretation Comments Glucose Lvl (test code = Glucose Lvl) 88 65-99 [facility] [employer] [id number] 13:36:00 Test Item Value Reference Range Interpretation Comments BUN (test code = BUN) 11 7-25 [facility] [employer] [id number] 13:36:00 Test Item Value Reference Range Interpretation Comments Creatinine Lvl (test code = Creatinine 0.57 0.60-0.93 Lvl) [facility] [employer] [id number] 13:36:00 Test Item Value Reference Range Interpretation Comments eGFR NON-AFR. NEPALESE (test code = 91 eGFR NON-AFR. NEPALESE) [facility] [employer] [id number] 13:36:00 Test Item Value Reference Range Interpretation Comments eGFR (test code = eGFR 105 ) [facility] [employer] [id number] 13:36:00 Test Item Value Reference Range Interpretation Comments B/C Ratio (test code = B/C Ratio) 19 6-22 [facility] [employer] [id number] 13:36:00 Test Item Value Reference Range Interpretation Comments Sodium Lvl (test code = Sodium Lvl) 139 135-146 [facility] [employer] [id number] 13:36:00 Test Item Value Reference Range Interpretation Comments Potassium Lvl (test code = Potassium 4.1 3.5-5.3 Lvl) [facility] [employer] [id number] 13:36:00 Test Item Value Reference Range Interpretation Comments Chloride Lvl (test code = Chloride Lvl) 98 98-110 [facility]2021-07-06 13:36:00 Test Item Value Reference Range Interpretation Comments CO2 (test code = CO2) 32 20-32 [facility]2021-07-06 13:36:00 Test Item Value Reference Range Interpretation Comments Calcium Lvl (test code = Calcium Lvl) 10.2 8.6-10.4 [place] [id number] 13:36:00 Test Item Value Reference Range Interpretation Comments Total Protein (test code = Total 6.9 6.1-8.1 Protein) [facility]2021-07-06 13:36:00 Test Item Value Reference Range Interpretation Comments Albumin Lvl (test code = Albumin Lvl) 4.1 3.6-5.1 [facility]2021-07-06 13:36:00 Test Item Value Reference Range Interpretation Comments Globulin (test code = Globulin) 2.8 1.9-3.7 [facility]2021-07-06 13:36:00 Test Item Value Reference Range Interpretation Comments A/G Ratio (test code = A/G Ratio) 1.5 1.0-2.5 [facility]2021-07-06 13:36:00 Test Item Value Reference Range Interpretation Comments Bili Total (test code = Bili Total) 0.5 0.2-1.2 [place] [id number] 13:36:00 Test Item Value Reference Range Interpretation Comments Alk Phos (test code = Alk Phos) 73 37-153 [facility]2021-07-06 13:36:00 Test Item Value Reference Range Interpretation Comments ASPARTATE TRANSAMINASE (test code = 18 10-35 ASPARTATE TRANSAMINASE) [facility]2021-07-06 13:36:00 Test Item Value Reference Range Interpretation Comments ALANINE AMINOTRANSFERASE (test code = 9 6-29 ALANINE AMINOTRANSFERASE) [place] 975991-07-06 13:36:00 Test Item Value Reference Range Interpretation Comments Vitamin D, 25-OH, Total (test code = 45 30-100 Vitamin D, 25-OH, Total) [facility]OKRAP0481-03-82 13:36:00 Test Item Value Reference Range Interpretation Comments WBC X 10x3 (test code = WBC X 10x3) 7.2 3.8-10.8 [facility] HospitalHrbpejqPYCLDONSHA1051-41-50 13:36:00 Test Item Value Reference Range Interpretation Comments RBC X 10x6 (test code = RBC X 10x6) 4.75 3.80-5.10 [facility] HospitalWxrztjjAMQETVWPWY2651-82-37 13:36:00 Test Item Value Reference Range Interpretation Comments Hgb (test code = Hgb) 13.3 11.7-15.5 [facility] HospitalWgvwpmgGAQSCJTRVC6749-33-19 13:36:00 Test Item Value Reference Range Interpretation Comments Hct (test code = Hct) 41.3 35.0-45.0 [facility] HospitalQjlriylLKUUDCAFSS1053-98-15 13:36:00 Test Item Value Reference Range Interpretation Comments MCV (test code = MCV) 86.9 80.0-100.0 [facility] HospitalZdxdalmHIEVYAMHOY0752-58-34 13:36:00 Test Item Value Reference Range Interpretation Comments MCH (test code = MCH) 28.0 pg 27.0-33.0 [facility] HospitalPvoghwlEAIRXRAOBI0416-16-17 13:36:00 Test Item Value Reference Range Interpretation Comments MCHC (test code = MCHC) 32.2 32.0-36.0 [facility] HospitalJwjpfauIZWBZHNUCT7724-18-11 13:36:00 Test Item Value Reference Range Interpretation Comments RDW (test code = RDW) 13.2 11.0-15.0 [facility] HospitalFiswshyXNCFIGADME8557-09-23 13:36:00 Test Item Value Reference Range Interpretation Comments Platelet (test code = Platelet) 292 140-400 [facility] HospitalPyeuhvhRKSHNHSSGU1608-37-86 13:36:00 Test Item Value Reference Range Interpretation Comments MPV (test code = MPV) 10.7 7.5-12.5 [facility]J6518[facility] 13:36:00 Test Item Value Reference Range Interpretation Comments Hep C Ab (test code = Hep C Ab) NON-REACTIVE [facility]DwqwiypSRXELLWCTP1147-75-11 13:36:00 Test Item Value Reference Range Interpretation Comments Hep Signal to Cut-Off (test code = Hep 0.03 1 Signal to Cut-Off) [facility]LuhqpphUXDEWL8614-18-22 13:36:00 Test Item Value Reference Range Interpretation Comments Chol (test code = Chol) 195 [facility] CampusUloausvRXOUPM5827-15-98 13:36:00 Test Item Value Reference Range Interpretation Comments HDL (test code = HDL) 65 [facility]NyioikkROJGTC3982-43-72 13:36:00 Test Item Value Reference Range Interpretation Comments Trig (test code = Trig) 167 [facility] CampusVxbeuipSPLHWW6922-91-80 13:36:00 Test Item Value Reference Range Interpretation Comments LDL (Calculated) (test code = LDL 102 (Calculated)) [facility] HospitalGbpmyzbJKJLWT8077-38-95 13:36:00 Test Item Value Reference Range Interpretation Comments CHD Risk (test code = CHD Risk) 3.0 [facility] HospitalNzhuowbRTKTXL3136-84-24 13:36:00 Test Item Value Reference Range Interpretation Comments Non HDL Chol (test code = Non HDL Chol) 130 [facility] AND [id number] 13:36:00 Test Item Value Reference Range Interpretation Comments UA Color (test code = UA Color) YELLOW [facility] AND [id number] 13:36:00 Test Item Value Reference Range Interpretation Comments UA Turbidity (test code = UA CLOUDY Turbidity) [facility] AND [id number] 13:36:00 Test Item Value Reference Range Interpretation Comments UA Spec Grav (test code = UA Spec 1.018 1 1.001-1.035 Grav) [facility] AND [id number] 13:36:00 Test Item Value Reference Range Interpretation Comments UA pH (test code = UA pH) 8.0 1 5.0-8.0 [facility] AND [id number] 13:36:00 Test Item Value Reference Range Interpretation Comments UA Glucose (test code = UA Glucose) NEGATIVE [facility] AND [id number] 13:36:00 Test Item Value Reference Range Interpretation Comments UA Bili (test code = UA Bili) NEGATIVE [facility] AND [id number] 13:36:00 Test Item Value Reference Range Interpretation Comments UA Ketones (test code = UA Ketones) NEGATIVE [facility] AND [id number] 13:36:00 Test Item Value Reference Range Interpretation Comments UA Blood (test code = UA Blood) 1+ [facility] AND [id number] 13:36:00 Test Item Value Reference Range Interpretation Comments UA Protein (test code = UA Protein) TRACE [facility] AND [id number] 13:36:00 Test Item Value Reference Range Interpretation Comments UA Nitrite (test code = UA Nitrite) NEGATIVE [facility] AND [id number] 13:36:00 Test Item Value Reference Range Interpretation Comments UA Leuk Est (test code = UA Leuk NEGATIVE Est) [facility] AND [id number] 13:36:00 Test Item Value Reference Range Interpretation Comments UA WBC (test code = UA WBC) NONE SEEN [facility] AND [id number] 13:36:00 Test Item Value Reference Range Interpretation Comments UA RBC (test code = UA RBC) 3-10 [facility] AND [id number] 13:36:00 Test Item Value Reference Range Interpretation Comments UA Sq Epi (test code = UA Sq Epi) 0-5 [facility] AND [id number] 13:36:00 Test Item Value Reference Range Interpretation Comments UA Bacteria (test code = UA MODERATE Bacteria) [facility] AND [id number] 13:36:00 Test Item Value Reference Range Interpretation Comments UA Hyal Cast (test code = UA Hyal NONE SEEN Cast) [facility] AND [id number] 13:36:00 Test Item Value Reference Range Interpretation Comments Result 3 (Urine Culture) (test SEE COMMENT code = Result 3 (Urine Culture)) [facility] [id number] 15:53:00 Test Item Value Reference Range Interpretation Comments Glucose Lvl (test code = Glucose Lvl) 94 65-99 [facility] [id number] 15:53:00 Test Item Value Reference Range Interpretation Comments BUN (test code = BUN) 10 7-25 [facility] [id number] 15:53:00 Test Item Value Reference Range Interpretation Comments Creatinine Lvl (test code = Creatinine 0.62 0.60-0.93 Lvl) [facility]2020-07-01 15:53:00 Test Item Value Reference Range Interpretation Comments eGFR NON-AFR. NEPALESE (test code = 89 eGFR NON-AFR. NEPALESE) [facility]2020-07-01 15:53:00 Test Item Value Reference Range Interpretation Comments eGFR (test code = eGFR 103 ) [facility] [id number] 15:53:00 Test Item Value Reference Range Interpretation Comments B/C Ratio (test code = B/C NOT APPLICABLE 6-22 Ratio) [facility]2020-07-01 15:53:00 Test Item Value Reference Range Interpretation Comments Sodium Lvl (test code = Sodium Lvl) 139 135-146 [place] 975990-07-01 15:53:00 Test Item Value Reference Range Interpretation Comments Potassium Lvl (test code = Potassium 4.2 3.5-5.3 Lvl) [facility]2020-07-01 15:53:00 Test Item Value Reference Range Interpretation Comments Chloride Lvl (test code = Chloride Lvl) 99 98-110 [facility]2020-07-01 15:53:00 Test Item Value Reference Range Interpretation Comments CO2 (test code = CO2) 34 20-32 [place] 975990-07-01 15:53:00 Test Item Value Reference Range Interpretation Comments Calcium Lvl (test code = Calcium Lvl) 10.3 8.6-10.4 [place] 975990-07-01 15:53:00 Test Item Value Reference Range Interpretation Comments Total Protein (test code = Total 6.8 6.1-8.1 Protein) [facility]2020-07-01 15:53:00 Test Item Value Reference Range Interpretation Comments Albumin Lvl (test code = Albumin Lvl) 4.1 3.6-5.1 [place] 975990-07-01 15:53:00 Test Item Value Reference Range Interpretation Comments Globulin (test code = Globulin) 2.7 1.9-3.7 [place] 975990-07-01 15:53:00 Test Item Value Reference Range Interpretation Comments A/G Ratio (test code = A/G Ratio) 1.5 1.0-2.5 [place] 975990-07-01 15:53:00 Test Item Value Reference Range Interpretation Comments Bili Total (test code = Bili Total) 0.4 0.2-1.2 [place] 975990-07-01 15:53:00 Test Item Value Reference Range Interpretation Comments Alk Phos (test code = Alk Phos) 65 37-153 [facility]2020-07-01 15:53:00 Test Item Value Reference Range Interpretation Comments ASPARTATE TRANSAMINASE (test code = 16 10-35 ASPARTATE TRANSAMINASE) [facility]2020-07-01 15:53:00 Test Item Value Reference Range Interpretation Comments ALANINE AMINOTRANSFERASE (test code = 11 6-29 ALANINE AMINOTRANSFERASE) [facility] HospitalFxysvyuOJGPPCYSHO5158-88-60 15:53:00 Test Item Value Reference Range Interpretation Comments WBC X 10x3 (test code = WBC X 10x3) 6.1 3.8-10.8 [facility] HospitalYzlzjqtDNMTZMDULB6096-83-74 15:53:00 Test Item Value Reference Range Interpretation Comments RBC X 10x6 (test code = RBC X 10x6) 4.79 3.80-5.10 [facility] HospitalMjnttoeLBSNGNUFST8773-18-15 15:53:00 Test Item Value Reference Range Interpretation Comments Hgb (test code = Hgb) 13.5 11.7-15.5 [facility] HospitalEbusmapBYITSEPMSP7712-37-11 15:53:00 Test Item Value Reference Range Interpretation Comments Hct (test code = Hct) 41.8 35.0-45.0 [facility] HospitalUewsudlOWTTAMZWOA2724-74-50 15:53:00 Test Item Value Reference Range Interpretation Comments MCV (test code = MCV) 87.3 80.0-100.0 [facility] HospitalLuozgnvDZSEHELDFH6023-52-72 15:53:00 Test Item Value Reference Range Interpretation Comments MCH (test code = MCH) 28.2 pg 27.0-33.0 [facility] HospitalMfqvlhzNAOBSIFBLQ7295-97-28 15:53:00 Test Item Value Reference Range Interpretation Comments MCHC (test code = MCHC) 32.3 32.0-36.0 [facility] HospitalIesydgwFLGIVPMRUT0758-01-64 15:53:00 Test Item Value Reference Range Interpretation Comments RDW (test code = RDW) 13.2 11.0-15.0 [facility] HospitalWsbpjliFMLZLHBPGT2092-10-72 15:53:00 Test Item Value Reference Range Interpretation Comments Platelet (test code = Platelet) 319 140-400 [facility] HospitalWgwcknmGAECAHSPUA4208-54-73 15:53:00 Test Item Value Reference Range Interpretation Comments MPV (test code = MPV) 10.8 7.5-12.5 [facility] CampusMrmkfzyRYNIWT7352-07-23 15:53:00 Test Item Value Reference Range Interpretation Comments Chol (test code = Chol) 165 [facility] CampusZbcbcnrUSEZKJ7051-69-34 15:53:00 Test Item Value Reference Range Interpretation Comments HDL (test code = HDL) 69 [facility] HospitalUvlkvqkLGNEQO9733-98-47 15:53:00 Test Item Value Reference Range Interpretation Comments Trig (test code = Trig) 113 [facility] HospitalHqsfrutADUGMC0953-16-84 15:53:00 Test Item Value Reference Range Interpretation Comments LDL (Calculated) (test code = LDL 76 (Calculated)) [facility] HospitalSjwfskiUAAMNK6537-83-56 15:53:00 Test Item Value Reference Range Interpretation Comments CHD Risk (test code = CHD Risk) 2.4 [facility] HospitalZfmyzobWPYKZD4842-16-02 15:53:00 Test Item Value Reference Range Interpretation Comments Non HDL Chol (test code = Non HDL Chol) 96 [facility] HospitalPARATHYROID HIIIZZR6557-93-09 15:53:00 Test Item Value Reference Range Interpretation Comments PTH Intact (test code = PTH Intact) 57 14-64 [facility] HospitalUpirtekVXSRMXMRAJ1380-24-57 12:27:00 Test Item Value Reference Range Interpretation Comments Lymphocytes (test code = Lymphocytes) 32.4 20.0-40.0 [facility] HospitalUmiclitYDNOZSQCDE5513-45-73 12:27:00 Test Item Value Reference Range Interpretation Comments Lymphocytes # (test code = Lymphocytes 2.5 1.0-5.5 #) [facility] HospitalUugcwekSOQIFSOCIB7958-27-70 12:27:00 Test Item Value Reference Range Interpretation Comments Neutrophils # (test code = Neutrophils 4.3 1.5-8.1 #) [facility] HospitalSdlpauaLTNQGXCIZN7344-03-00 12:27:00 Test Item Value Reference Range Interpretation Comments Basophils (test code = 1.2 See_Comment [Aut omated message] The Basophils) system which ge nerated this result tra nsmitted reference range : <=1.0. The reference r isela was not used to int erpret this result as normal/abnormal . [facility] HospitalDxhxunjPUHPGRXPAC4397-34-23 12:27:00 Test Item Value Reference Range Interpretation Comments Basophils # (test code 0.1 See_Comment [Aut omated message] The = Basophils #) system which generated this result tra nsmitted reference range : <=0.2. The reference r isela was not used to int erpret this result as normal/abnormal . [facility] HospitalFkydfanVIMFXOHDZT7335-97-53 12:27:00 Test Item Value Reference Range Interpretation Comments Eosinophils # (test code 0.1 See_Comment [A utomated message] The = Eosinophils #) system whic h generated this result tra nsmitted reference range : <=0.5. The reference r isela was not used to int erpret this result as normal/abnormal . [facility] HospitalKtzmlexVDSCZQPJLW4519-54-56 12:27:00 Test Item Value Reference Range Interpretation Comments Monocytes (test code = Monocytes) 9.2 2.0-12.0 [facility] HospitalOeggecpDHWJGKBYEY3249-45-23 12:27:00 Test Item Value Reference Range Interpretation Comments Eosinophils (test code = 1.8 See_Comment [A utomated message] The Eosinophils) system which ge nerated this result tra nsmitted reference range : <=4.0. The reference r isela was not used to int erpret this result as normal/abnormal . [facility] HospitalJcndozjHCOAORDGMU6790-23-67 12:27:00 Test Item Value Reference Range Interpretation Comments Monocytes # (test code 0.7 See_Comment [Aut omated message] The = Monocytes #) system which generated this result tra nsmitted reference range : <=0.8. The reference r isela was not used to int erpret this result as normal/abnormal . [facility] HospitalMqakzffXGKCDFHEJG2686-59-46 12:27:00 Test Item Value Reference Range Interpretation Comments Segs (test code = Segs) 55.4 45.0-75.0 [facility] HospitalNtqcfzbNTJYAOOCYH9916-77-51 12:27:00 Test Item Value Reference Range Interpretation Comments MPV (test code = MPV) 7.3 7.4-10.4 [facility] HospitalUiqvnhvLWVSWSKGTL1899-56-67 12:27:00 Test Item Value Reference Range Interpretation Comments Platelet (test code = Platelet) 312 133-450 [facility] HospitalUondbmbKCIFCRROZK9612-42-72 12:27:00 Test Item Value Reference Range Interpretation Comments RDW (test code = RDW) 13.2 11.5-14.5 [facility] HospitalTveiqakTGLBXGBHBZ2966-84-06 12:27:00 Test Item Value Reference Range Interpretation Comments MCH (test code = MCH) 29.3 pg 27.0-31.0 [facility] HospitalLsxbhqtAODZJYDSGR8400-62-27 12:27:00 Test Item Value Reference Range Interpretation Comments MCHC (test code = MCHC) 33.5 32.0-36.0 [facility] HospitalYtgpclnMZZWCJSIEH7992-99-62 12:27:00 Test Item Value Reference Range Interpretation Comments MCV (test code = MCV) 87.4 80.0-98.0 [facility]HaeqknsXNDLIZBAIK7733-97-19 12:27:00 Test Item Value Reference Range Interpretation Comments Hgb (test code = Hgb) 13.3 12.0-16.0 [facility] CenterAlxwkkaKAPRCHRKKD9263-15-29 12:27:00 Test Item Value Reference Range Interpretation Comments WBC (test code = WBC) 7.8 3.7-10.4 [facility] CenterYvxepvxBOJGZNLFLM3660-55-00 12:27:00 Test Item Value Reference Range Interpretation Comments Hct (test code = Hct) 39.7 36.0-48.0 [facility] CenterLnguocuMPHFSYXOHM1918-00-46 12:27:00 Test Item Value Reference Range Interpretation Comments RBC (test code = RBC) 4.54 4.20-5.40 [facility] HospitalCARDIAC YKNOGHI8691-90-22 15:42:00 Test Item Value Reference Range Interpretation Comments Total CK (test code = Total CK) 95 29-143 [facility] LFMQE1326-38-84 15:42:00 Test Item Value Reference Range Interpretation Comments ALANINE AMINOTRANSFERASE (test code = 14 6-29 ALANINE AMINOTRANSFERASE) [facility] KVRST9558-26-45 15:42:00 Test Item Value Reference Range Interpretation Comments A/G Ratio (test code = A/G Ratio) 1.4 1.0-2.5 [facility] ZQDOH0500-02-25 15:42:00 Test Item Value Reference Range Interpretation Comments Bili Total (test code = Bili Total) 0.4 0.2-1.2 [facility] YKRPM3355-53-02 15:42:00 Test Item Value Reference Range Interpretation Comments Alk Phos (test code = Alk Phos) 67 33-130 [facility] [id number] 15:42:00 Test Item Value Reference Range Interpretation Comments ASPARTATE TRANSAMINASE (test code = 18 10-35 ASPARTATE TRANSAMINASE) [facility] [id number] 15:42:00 Test Item Value Reference Range Interpretation Comments CO2 (test code = CO2) 30 20-32 [facility] [id number] 15:42:00 Test Item Value Reference Range Interpretation Comments Total Protein (test code = Total 7.2 6.1-8.1 Protein) [facility]2018-12-04 15:42:00 Test Item Value Reference Range Interpretation Comments Calcium Lvl (test code = Calcium Lvl) 10.3 8.6-10.4 [facility]2018-12-04 15:42:00 Test Item Value Reference Range Interpretation Comments Globulin (test code = Globulin) 3.0 1.9-3.7 [facility]2018-12-04 15:42:00 Test Item Value Reference Range Interpretation Comments Albumin Lvl (test code = Albumin Lvl) 4.2 3.6-5.1 [facility]2018-12-04 15:42:00 Test Item Value Reference Range Interpretation Comments B/C Ratio (test code = B/C Ratio) 23 6-22 [facility]2018-12-04 15:42:00 Test Item Value Reference Range Interpretation Comments eGFR (test code = eGFR 107 ) [facility]2018-12-04 15:42:00 Test Item Value Reference Range Interpretation Comments Potassium Lvl (test code = Potassium 4.8 3.5-5.3 Lvl) [facility]2018-12-04 15:42:00 Test Item Value Reference Range Interpretation Comments Sodium Lvl (test code = Sodium Lvl) 138 135-146 [facility]2018-12-04 15:42:00 Test Item Value Reference Range Interpretation Comments Chloride Lvl (test code = Chloride Lvl) 100 98-110 [facility]2018-12-04 15:42:00 Test Item Value Reference Range Interpretation Comments BUN (test code = BUN) 13 7-25 [facility]2018-12-04 15:42:00 Test Item Value Reference Range Interpretation Comments eGFR NON-AFR. NEPALESE (test code = 93 eGFR NON-AFR. NEPALESE) [facility]2018-12-04 15:42:00 Test Item Value Reference Range Interpretation Comments Creatinine Lvl (test code = Creatinine 0.56 0.60-0.93 Lvl) [facility]2018-12-04 15:42:00 Test Item Value Reference Range Interpretation Comments Glucose Lvl (test code = Glucose Lvl) 87 65-99 [facility] HospitalQfqlzdcVHGTGMCHJF7039-31-29 15:42:00 Test Item Value Reference Range Interpretation Comments Platelet (test code = Platelet) 424 140-400 [facility] HospitalDwelpfwCUWMCIOBGL8923-88-47 15:42:00 Test Item Value Reference Range Interpretation Comments MCH (test code = MCH) 28.5 pg 27.0-33.0 [facility] HospitalNrbbihkUQOPYEMZPA2515-35-87 15:42:00 Test Item Value Reference Range Interpretation Comments RDW (test code = RDW) 12.4 11.0-15.0 [facility] HospitalVregauqKZIRUFHBSM2010-86-58 15:42:00 Test Item Value Reference Range Interpretation Comments MCHC (test code = MCHC) 32.7 32.0-36.0 [facility] HospitalDbgilluANZGWIKVWG4293-45-41 15:42:00 Test Item Value Reference Range Interpretation Comments MPV (test code = MPV) 9.9 7.5-12.5 [facility] HospitalEmxklspNGANUGIKWB7417-61-62 15:42:00 Test Item Value Reference Range Interpretation Comments WBC X 10x3 (test code = WBC X 10x3) 6.0 3.8-10.8 [facility] HospitalYxeunfzKQJWTSCIDG6282-74-64 15:42:00 Test Item Value Reference Range Interpretation Comments Hgb (test code = Hgb) 12.3 11.7-15.5 [facility] HospitalSpxpuimVBLGZMRGAW4024-09-06 15:42:00 Test Item Value Reference Range Interpretation Comments RBC X 10x6 (test code = RBC X 10x6) 4.32 3.80-5.10 [facility] HospitalVbrzbyiTYUAMPQRVA7673-40-01 15:42:00 Test Item Value Reference Range Interpretation Comments MCV (test code = MCV) 87.0 80.0-100.0 [facility] HospitalXotiqidTQGCGFSHRV4192-24-57 15:42:00 Test Item Value Reference Range Interpretation Comments Hct (test code = Hct) 37.6 35.0-45.0 [facility] HospitalXtzuogiKKBTYKAZDQ2022-37-58 15:42:00 Test Item Value Reference Range Interpretation Comments ALANINE AMINOTRANSFERASE (test code = 14 6-29 ALANINE AMINOTRANSFERASE) [facility] HospitalHwvbxogZJMQHQCKUX6757-80-26 15:42:00 Test Item Value Reference Range Interpretation Comments Total CK (test code = Total CK) 95 29-143 [facility] HospitalUkxouzwCDYUZWMKUB6246-93-91 15:42:00 Test Item Value Reference Range Interpretation Comments A/G Ratio (test code = A/G Ratio) 1.4 1.0-2.5 [facility] HospitalWdgwbypLHECOWDJQI4454-66-03 15:42:00 Test Item Value Reference Range Interpretation Comments Bili Total (test code = Bili Total) 0.4 0.2-1.2 [facility] HospitalAszixarJSJYPOZKKP9501-30-49 15:42:00 Test Item Value Reference Range Interpretation Comments Alk Phos (test code = Alk Phos) 67 33-130 [facility] HospitalCgjobdfQQRQQZADHI8138-23-26 15:42:00 Test Item Value Reference Range Interpretation Comments ASPARTATE TRANSAMINASE (test code = 18 10-35 ASPARTATE TRANSAMINASE) [facility] HospitalPziixbsQWACSLLKKL4458-08-95 15:42:00 Test Item Value Reference Range Interpretation Comments CO2 (test code = CO2) 30 20-32 [facility] HospitalVhqayzeSKDOCIQWPK4380-69-43 15:42:00 Test Item Value Reference Range Interpretation Comments Total Protein (test code = Total 7.2 6.1-8.1 Protein) [facility] HospitalUshhxruFUCKGOFNZG7129-90-33 15:42:00 Test Item Value Reference Range Interpretation Comments Calcium Lvl (test code = Calcium Lvl) 10.3 8.6-10.4 [facility] HospitalXrszsxlUQEKVSIYGR0707-04-58 15:42:00 Test Item Value Reference Range Interpretation Comments Globulin (test code = Globulin) 3.0 1.9-3.7 [facility] HospitalYvcwvcjQAYRKOJHBC5297-16-29 15:42:00 Test Item Value Reference Range Interpretation Comments Albumin Lvl (test code = Albumin Lvl) 4.2 3.6-5.1 [facility] HospitalWmtrfatEOVBDHJWQA7710-49-48 15:42:00 Test Item Value Reference Range Interpretation Comments B/C Ratio (test code = B/C Ratio) 23 6-22 [facility] HospitalZymrklqMHKYESZAZI2618-39-43 15:42:00 Test Item Value Reference Range Interpretation Comments eGFR (test code = eGFR 107 ) [facility] HospitalQokbbcbKWCZSZQKPU9813-82-21 15:42:00 Test Item Value Reference Range Interpretation Comments Potassium Lvl (test code = Potassium 4.8 3.5-5.3 Lvl) [facility] HospitalQvlhftjUVIMJHSDEN5482-26-47 15:42:00 Test Item Value Reference Range Interpretation Comments Sodium Lvl (test code = Sodium Lvl) 138 135-146 [facility] HospitalSgshuwvKPCPKWIJLT2149-20-40 15:42:00 Test Item Value Reference Range Interpretation Comments Chloride Lvl (test code = Chloride Lvl) 100 98-110 [facility] HospitalEcpuebsIAIWJNRKBR8596-29-91 15:42:00 Test Item Value Reference Range Interpretation Comments BUN (test code = BUN) 13 7-25 [facility] HospitalGucuimbGUZPBKTUPD9232-93-81 15:42:00 Test Item Value Reference Range Interpretation Comments eGFR NON-AFR. NEPALESE (test code = 93 eGFR NON-AFR. NEPALESE) [facility] HospitalXuzoyfmLMWZEMJJAO9753-53-43 15:42:00 Test Item Value Reference Range Interpretation Comments Creatinine Lvl (test code = Creatinine 0.56 0.60-0.93 Lvl) [facility] HospitalMfjcuboJSTDDTOFHX2192-78-84 15:42:00 Test Item Value Reference Range Interpretation Comments Glucose Lvl (test code = Glucose Lvl) 87 65-99 [id number] 15:42:00 Test Item Value Reference Range Interpretation Comments Non HDL Chol (test code = Non HDL Chol) 135 [id number] 15:42:00 Test Item Value Reference Range Interpretation Comments HDL (test code = HDL) 63 [id number] 15:42:00 Test Item Value Reference Range Interpretation Comments Trig (test code = Trig) 178 [facility] [id number] 15:42:00 Test Item Value Reference Range Interpretation Comments Chol (test code = Chol) 198 [facility] [id number] 15:42:00 Test Item Value Reference Range Interpretation Comments LDL (Calculated) (test code = LDL 105 (Calculated)) [facility] [id number] 15:42:00 Test Item Value Reference Range Interpretation Comments CHD Risk (test code = CHD Risk) 3.1 [facility] Notes Date/Time Note Provider Source 2021-01-21 12:35:00-00:00 Radiation Dose CTDIVOL = 0 ( mGy): DLP = 440.73 (mGy-cm) Lanette Enoree PROCEDURE INFORMATION: Exam: CTA Chest With Contrast Exam date and time: 01/21/2021 12:38 PM Age: 75 years old Clinical indication: Other pulmonary embolism wi thout acute cor pulmonale; Additional info: /i26.99 TECHNIQUE: Imaging protocol: Computed tomographic a ngiography of the chest with contrast. 3D rendering (Not supervised by radiologist): VT P and/or 3D reconstructed images were created by the technologist. Radiation optimization: All CT scans at this facility use at least one of these dose optimization techniques: automated exposure control; mA and/or kV adjustment per patient size (includes targeted e xams where dose is matched to clinical indication); or iterative reconstructio n. Contrast material: [id number]; Contrast volume: 75 ml; Contrast route: INTRAVENOUS (IV); COMPARISON: CR CHEST 2 VIEWS DX 02/04/2019 11:56 AM RADIATION DOSE METRICS: Total DLP (mGy-cm): 440.73 FINDINGS: Pulmonary arteries: No pulmonary emboli. Aorta: Aortic atherosclerotic calcifications Lungs: No consolidation. 4 mm right upper lobe p ulmonary nodule (series 2, image 30). Pleural spaces: Unremarkable. No pneumothorax. N o pleural effusion. Heart: Coronary artery atherosclerotic calcifica tions. Mediastinal space: Small hiatal hernia. Lymph nodes: No enlarged lymph nodes. Bones/joints: Unremarkable. No acute fracture. Soft tissues: Unremarkable. IMPRESSION: 1. No pulmonary emboli or acute cardiopulmonary abnormalities. 2. 4 mm right upper lobe pul monary nodule. For patients at low risk (minimal or absent history of smoking and of other known ris k factors), no routine follow-up is indicated. For patients at high ris k (history of smoking or of other known risk factors), c onsider optional CT Chest at 12 months. (Reference: Salud) 3. Small hiatal hernia. REFERENCES: Salud Kahn, et al. Guidelines for Management of Incidental Pulmonary Nodules Detected on CT Images: From the Fleischner Socie ty 2017. Radiology. 2017;284(1):228-243. Bahman Tian MD On 01/21/2021 13:57:34; VR-MX [id number] 2019-02-04 11:46:00-00:00 XR CHEST 2 VIEWS OP ID [place] HISTORY: - R06.02 shortness of breath COMPARISON: None. FINDINGS: Minimal linear opa city within the medial left base. Otherwise, the lungs are clear. The heart and vascular markings are normal. No pleural abnormality. The bones are demineralized. IMPRESSION: No evidence of an active cardiopulmo nary process. SL: [id number] 2017-12-18 10:55:34-00:00 Patient Name: KVNG CUMMINGS. Lanette Gifford : 1945; Age: 72 years y/o; Female. MR: [id number]. Ordering Physician: Tere Sinha MD. EXAM: DEXA BONE DENSITY STUDY. INDICATION: Osteoporosis. COMPARISONS: Report from previous DEXA examinati on. Report dated 01/16/2011. TECHNIQUE: Lumbar spine and left hip bone mineral densities were measured using a [employer] Discovery A dual x-ray absorptiometry system. FINDINGS: LUMBAR SPINE: L1-L4 average BMD is 1.017 g/cm2 T Score: -1.4. Previous T score -1.6. ; Z score: 0.5. LEFT HIP: Left femoral neck BMD: 0.621 g/cm2 Total hip BMD: 0.704 g/cm2; T Score: -2.4. Previ ous T score -2.2. IMPRESSION: 1. Osteopenia of the lumbar spine. 2. Osteopenia of the left hip. The [employer] n recently established that osteoporosis occurs at -2.5 SD below peak bone mass. (Peak bone mass occurs at 30 years of age in the axial skeleton (spine) and about 22 years of age in the femoral neck.) I n addition, osteopenia (low bone mass) occurs at - 1.0 SD to -2.5 SD below peak bone mass. Low bone mass is the single most accurate predictor for fracture risk. SL: GELY
[2022-12-31 18:30] LABS: Absolute Lymphocytes (CBC) 2.3 K/uL (0.7-4.9); Hematocrit 42.1 % (36.0-45.0); MCV 86.8 fL (80-100); MPV 8.4 fL (7.6-11.3); RBC Red Blood Cell Count 4.85 M/uL (3.86-4.86)
[2022-12-31 18:38] LABS: Protime INR 0.72
--- NOTE | 2022-12-31 18:48 | RAD REPORT ---
EXAM DESCRIPTION: CT - Head Brain Wo Cont - 12/31/2022 6:40 pm CLINICAL HISTORY: dizziness, nausea/vomiting Headache, drowsiness COMPARISON: No comparisons TECHNIQUE: All CT scans are performed using dose optimization technique as appropriate and may inclu de automated exposure control or mA/KV adjustment according to patient size. FINDINGS: No intracranial hemorrhage, hydrocephalus or extra-axial fluid collection.No areas of brai n edema or evidence of midline shift. Left vertebral artery is calcified. The paranasal sinuses and mastoids are clear. The calvarium is intact. IMPRESSION: No acute intracranial abnormality.
[2022-12-31] MEDS ORDERED: ONDANSETRON 4 MG/2 ML VIAL ONE ×2 (18:54→20:09)
[2022-12-31] MEDS ORDERED: FAMOTIDINE 20 MG/2 ML VIAL IV ONE (18:54)
--- NOTE | 2022-12-31 18:54 | RAD REPORT ---
EXAM DESCRIPTION: RAD - Chest Single View - 12/31/2022 6:39 pm CLINICAL HISTORY: COUGH Chest pain. COMPARISON: No comparisons FINDINGS: Portable technique limits examination quality. The lungs are mildly emphysematous but grossly clear. The heart is normal in size. No displaced fract ures. IMPRESSION: No acute intrathoracic process suspected.
[2022-12-31] MEDS ORDERED: NA CHLORIDE 0.9% 1,000 ML ONE (18:55)
[2022-12-31] MEDS ORDERED: LABETALOL 20 MG/4ML SYRINGE IV ONE ×2 (18:55→19:25)
[2022-12-31 18:59] LABS: Albumin 3.8 g/dL (3.4-5.0); Bilirubin Direct 0.1 mg/dL (0-0.2); Bilirubin Indirect, Calculated 0.2 mg/dL (0.2-0.8); Bilirubin Total 0.3 mg/dL (0.2-1.0); Magnesium 2.2 mg/dL (1.6-2.4); Potassium 3.1 mEq/L (3.5-5.1); Protein, Total 8.2 g/dL (6.4-8.2); Troponin High Sensitivity 8.8 pg/mL (<58.9)
[2022-12-31] MEDS ORDERED: AMLODIPINE 5 MG TAB ONE (19:25)
[2022-12-31] MEDS ORDERED: KCL 20 MEQ/100 mL IVPB 100 ML IV ONE (19:25)
--- NOTE | 2022-12-31 20:02 | EDPHYS ---
Physician Documentation [facility] Name: Claudette Chadwick Age: 77 yrs Sex: Female : 1945 Arrival Date: 12/31/2022 Time: 17:20 Bed 4 Private MD: ED Physician Franko York HPI: 12/31 18:27 This 77 yrs old Female presents to ER via Wheelchair with complaints of gale Nausea/Vomiting. 18:27 The patient presents to the emergency department with nausea, vomiting, that is gale intermittent, described as bilious. Onset: The symptoms/episode began/occurred just prior to arrival. Possible causes: unknown. The symptoms are aggravated by nothing. The symptoms are alleviated by nothing. Associated signs and symptoms: Pertinent positives: nausea, vomiting. Severity of symptoms: At their worst the symptoms were mild in the emergency department the symptoms are unchanged. The patient has not experienced similar symptoms in the past. Historical: - Allergies: 17:37 Codeine; ll1 17:37 darvon; ll1 - Home Meds: 18:25 amlodipine 2.5 mg tablet daily [Active]; hydrochlorothiazide 12.5 mg Oral capsule daily iw [Active]; olmesartan 40 mg oral tablet daily [Active]; metoprolol succinate 200 mg oral Tablet, Extended Release 24 hr every 12 hours [Active]; fluoxetine 20 mg Oral capsule daily [Active]; rosuvastatin 5 mg oral tablet daily [Active]; esomeprazole magnesium 40 mg oral capsule,delayed release (e.c.) daily [Active]; Vitamin D Oral 1,000 unit daily [Active]; aspirin 81 mg Oral capsule daily [Active]; CoQ-10 100 mg oral capsule daily [Active]; PreserVision AREDS 4,296 mcg-226 mg-90 mg oral capsule 2 times per day [Active]; - PMHx: 17:37 Hypertensive disorder; Hypercholesterolemia; GERD; ll1 - PSHx: 17:37 esophageal SX; ll1 - Immunization history:: Client reports receiving the 2nd dose of the Covid vaccine. - Social history:: Smoking status: Patient denies any tobacco usage or history of. ROS: 18:28 Constitutional: Negative for fever, chills, and weight loss, Eyes: Negative for injury, gale pain, redness, and discharge, ENT: Negative for injury, pain, and discharge, Neck: Negative for injury, pain, and swelling, Cardiovascular: Negative for chest pain, palpitations, and edema, Respiratory: Negative for shortness of breath, cough, wheezing, and pleuritic chest pain, Back: Negative for injury and pain, : Negative for injury, bleeding, discharge, and swelling, MS/Extremity: Negative for injury and deformity, Skin: Negative for injury, rash, and discoloration, Neuro: Negative for headache, weakness, numbness, tingling, and seizure, Psych: Negative for depression, anxiety, suicide ideation, homicidal ideation, and hallucinations, Allergy/Immunology: Negative for hives, rash, and allergies, Endocrine: Negative for neck swelling, polydipsia, polyuria, polyphagia, and marked weight changes, Hematologic/Lymphatic: Negative for swollen nodes, abnormal bleeding, and unusual bruising. 18:28 Abdomen/GI: Positive for nausea and vomiting, abdominal cramps. 18:28 Neuro: Positive for headache. Exam: 18:28 Constitutional: This is a well developed, well nourished patient who is awake, alert, gale and in no acute distress. Head/Face: Normocephalic, atraumatic. Eyes: Pupils equal round and reactive to light, extra-ocular motions intact. Lids and lashes normal. Conjunctiva and sclera are non-icteric and not injected. Cornea within normal limits. Periorbital areas with no swelling, redness, or edema. ENT: Nares patent. No nasal discharge, no septal abnormalities noted. Tympanic membranes are normal and external auditory canals are clear. Oropharynx with no redness, swelling, or masses, exudates, or evidence of obstruction, uvula midline. Mucous membranes moist. Neck: Trachea midline, no thyromegaly or masses palpated, and no cervical lymphadenopathy. Supple, full range of motion without nuchal rigidity, or vertebral point tenderness. No Meningismus. Chest/axilla: Normal chest wall appearance and motion. Nontender with no deformity. No lesions are appreciated. Cardiovascular: Regular rate and rhythm with a normal S1 and S2. No gallops, murmurs, or rubs. Normal PMI, no JVD. No pulse deficits. Respiratory: Lungs have equal breath sounds bilaterally, clear to auscultation and percussion. No rales, rhonchi or wheezes noted. No increased work of breathing, no retractions or nasal flaring. Abdomen/GI: Soft, non-tender, with normal bowel sounds. No distension or tympany. No guarding or rebound. No evidence of tenderness throughout. Back: No spinal tenderness. No costovertebral tenderness. Full range of motion. Female : Normal external genitalia. Skin: Warm, dry with normal turgor. Normal color with no rashes, no lesions, and no evidence of cellulitis. MS/ Extremity: Pulses equal, no cyanosis. Neurovascular intact. Full, normal range of motion. Neuro: Awake and alert, GCS 15, oriented to person, place, time, and situation. Cranial nerves II-XII grossly intact. Motor strength 5/5 in all extremities. Sensory grossly intact. Cerebellar exam normal. Normal gait. Psych: Awake, alert, with orientation to person, place and time. Behavior, mood, and affect are within normal limits. 18:28 Neck: ROM/movement: is normal, no acute changes, limited range of motion, is not appreciated, Meningeal signs: are not present, Kernig's sign is negative, Brudzinski's sign is negative, nuchal rigidity, is not appreciated, Lymph nodes: no appreciated lymphadenopathy. 18:28 ECG was reviewed by the Attending Physician. Vital Signs: 17:35 BP 198 / 101; Pulse 71; Resp 17; Temp 97.4; Pulse Ox 100% ; ll1 18:20 BP 224 / 81; Pulse 62; Resp 16; Pulse Ox 100% on R/A; iw 19:12 BP 220 / 77; Pulse 71; Resp 21; Pulse Ox 100% on R/A; jb4 20:30 BP 185 / 78; Pulse 71; Resp 18; Pulse Ox 100% on R/A; jb4 21:13 BP 177 / 76; Pulse 78; Resp 17; Temp 98; Pulse Ox 99% on R/A; rv MDM: 17:47 Patient medically screened. gale 18:30 Differential diagnosis: Nonspecific abd pain, gastritis, pancreatitis, viral gale gastroenteritis, gastroenteritis. Data reviewed: vital signs, nurses notes, lab test result(s), EKG, radiologic studies, CT scan, plain films. Consideration of Admission/Observation Escalation of care including admission/observation considered. I considered the following discharge prescriptions or medication management in the emergency department Medications were administered in the Emergency Department. See MAR. Test considered but Not performed: CT: no ct abd/pel. External Records Reviewed:. Care significantly affected by the following chronic conditions: Hypertension, gerd, high cholesterol. 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 12/31 17:48 Order name: Basic Metabolic Panel; Complete Time: 19:01 [facility] 12/31 17:48 Order name: CBC with Diff; Complete Time: 18:51 [facility] 12/31 17:48 Order name: LFT's; Complete Time: 19: [facility] 12/31 17:48 Order name: Magnesium; Complete Time: 19:01 [facility] 12/31 17:48 Order name: NT PRO-BNP; Complete Time: 19: [facility] 12/31 17:48 Order name: PT-INR; Complete Time: 18:51 [facility] 12/31 17:48 Order name: Troponin HS; Complete Time: 19:01 [facility] 12/31 17:48 Order name: Lipase; Complete Time: 19:01 [facility] 12/31 17:48 Order name: XRAY Chest (1 view); Complete Time: 18:58 [facility] 12/31 18:19 Order name: Head Brain Wo Cont CT; Complete Time: 18:51 [facility] 12/31 17:48 Order name: EKG; Complete Time: 17:49 [facility] 12/31 17:48 Order name: Cardiac monitoring; Complete Time: 19:01 [facility] 12/31 17:48 Order name: EKG - Nurse/Tech; Complete Time: 18:15 [facility] 12/31 17:48 Order name: IV Saline Lock; Complete Time: 18:23 [facility] 12/31 17:48 Order name: Labs collected and sent; Complete Time: 18:23 [facility] 12/31 17:48 Order name: O2 Per Protocol; Complete Time: 18:23 [facility] 12/31 17:48 Order name: O2 Sat Monitoring; Complete Time: 18:23 [facility] 12/31 19:02 Order name: Blood Pressure Recheck; Complete Time: 19:12 [facility] EC:28 Rate is 63 beats/min. Rhythm is regular. QRS [place] is Normal. MO interval is shortened gale at 102 msec. QT interval is normal. No Q waves. T waves are Normal. Clinical impression: NSR w/ Non-specific ST/T Changes and No evidence of ischemia. Interpreted by me. Administered Medications: 18:58 Drug: Famotidine IVP 20 mg Route: IVP; Site: left antecubital; iw 19:02 Follow up: Response: No adverse reaction iw 18:58 Drug: Ondansetron IVP 4 mg Route: IVP; Site: left antecubital; iw 18:58 Drug: Labetalol IV 10 mg Route: IV; Rate: per protocol; Site: left antecubital; iw 21:14 Follow up: IV Status: Completed infusion rv 18:59 Drug: NS 0.9% IV 1000 ml Route: IV; Rate: 1 bolus; Site: left antecubital; iw 21:15 Follow up: IV Status: Completed infusion; IV Intake: 1000ml rv 19:11 CANCELLED (Duplicate Order): Labetalol IV 10 mg IV at per protocol once gale 19:20 Drug: Norvasc PO 5 mg Route: PO; jb4 21:14 Follow up: Response: No adverse reaction rv 19:22 Drug: Labetalol IV 20 mg Route: IV; Rate: per protocol; Infused Over: 2 mins; Site: 4 left antecubital; 21:14 Follow up: IV Status: Completed infusion rv 19:33 Drug: Potassium Chloride IV 20 mEq Route: IV; Rate: per protocol; Site: left [facility] antecubital; 21:14 Follow up: IV Status: Completed infusion rv 20:04 Drug: Ondansetron IVP 4 mg Route: IVP; Site: left antecubital; jb4 21:14 Follow up: Response: No adverse reaction rv Disposition Summary: 12/31/22 20:01 Discharge Ordered Location: Home ms3 Problem: new ms3 Symptoms: have improved ms3 Condition: Stable ms3 Diagnosis - Nausea with vomiting, unspecified ms3 - Essential (primary) hypertension ms3 - Hypokalemia ms3 Followup: gale - With: Private Physician - When: 2 - 3 days - Reason: Recheck today's complaints, Continuance of care, Re-evaluation by your physician Discharge Instructions: - Discharge Summary Sheet gale - Potassium Content of Foods gale - Hypertension, Adult gale - Nausea and Vomiting, Adult gale - Hypertension, Adult, [id number] gale - How to Take Your Blood Pressure, [id number] gale - Hypokalemia gale - Managing Your Hypertension gale Forms: - Medication Reconciliation Form ms3 - Thank You Letter ms3 - Antibiotic Education ms3 - Prescription Opioid Use ms3 Prescriptions: - ondansetron 4 mg Oral Tablet,disintegrating - take 1 tablet by ORAL route every 6 hours for 5 days as needed for nausea and gale vomiting; 20 tablet; Refills: 0, Product Selection Permitted - promethazine 25 mg Rectal suppository - insert 1 suppository by RECTAL route every 6 hours as needed for nausea and gale vomiting; 14 suppository; Refills: 0, Product Selection Permitted Signatures: Dispatcher [employer] EDFranko Lawton MD MD cha Williams, Irene RN RN iw Tristen Early, BLOCK CUTTER-C BLOCK CUTTER-Cla1 Shree Castellanos RN RN jb4 Benny Mackay RN RN ll1 Robin Veloz DO DO ms3 Nnamdi Calero RN rv Corrections: (The following items were deleted from the chart) 19:11 19:04 Labetalol IV 10 mg IV at per protocol once ordered. gale gale
--- NOTE | 2022-12-31 20:02 | ER ---
Nurse's Notes [facility] Name: Claudette Chadwick Age: 77 yrs Sex: Female : 1945 Arrival Date: 12/31/2022 Time: 17:20 Bed 4 Private MD: Diagnosis: Nausea with vomiting, unspecified;Essential (primary) hypertension;Hypokalemia Presentation: 12/31 17:35 Chief complaint: Patient states: High BP, dizziness, N/V started around 1430 today. ll1 [place] palpitations also. Coronavirus screen: Client denies travel out of the [place] in the last 14 days. At this time, the client does not indicate any symptoms associated with coronavirus-19. Ebola Screen: Patient denies travel to an Ebola-affected area in the 21 days before illness onset. Initial Sepsis Screen: Does the patient meet any 2 criteria? No. Patient's initial sepsis screen is negative. Does the patient have a suspected source of infection? No. Patient's initial sepsis screen is negative. Risk Assessment: Do you want to hurt yourself or someone else? Patient reports no desire to harm self or others. Onset of symptoms was December 31, 2022. 17:35 Method Of Arrival: Wheelchair ll1 17:35 Acuity: BLANCA 2 ll1 Historical: - Allergies: 17:37 Codeine; ll1 17:37 darvon; ll1 - Home Meds: 18:25 amlodipine 2.5 mg tablet daily [Active]; hydrochlorothiazide 12.5 mg Oral capsule daily iw [Active]; olmesartan 40 mg oral tablet daily [Active]; metoprolol succinate 200 mg oral Tablet, Extended Release 24 hr every 12 hours [Active]; fluoxetine 20 mg Oral capsule daily [Active]; rosuvastatin 5 mg oral tablet daily [Active]; esomeprazole magnesium 40 mg oral capsule,delayed release (e.c.) daily [Active]; Vitamin D Oral 1,000 unit daily [Active]; aspirin 81 mg Oral capsule daily [Active]; CoQ-10 100 mg oral capsule daily [Active]; PreserVision AREDS 4,296 mcg-226 mg-90 mg oral capsule 2 times per day [Active]; - PMHx: 17:37 Hypertensive disorder; Hypercholesterolemia; GERD; ll1 - PSHx: 17:37 esophageal SX; ll1 - Immunization history:: Client reports receiving the 2nd dose of the Covid vaccine. - Social history:: Smoking status: Patient denies any tobacco usage or history of. Screenin:21 Abuse screen: Denies threats or abuse. Denies injuries from another. Nutritional iw screening: No deficits noted. Tuberculosis screening: No symptoms or risk factors identified. 19:00 [facility] ED Fall Risk Assessment (Adult) History of falling in the last 3 months, rv including since admission No falls in past 3 months (0 pts) Confusion or Disorientation No (0 pts) Intoxicated or Sedated No (0 pts) Impaired Gait No (0 pts) Mobility Assist Device Used No (0 pt) Altered Elimination No (0 pt) Score/Fall Risk Level 0 - 2 = Low Risk Oriented to surroundings, Maintained a safe environment, Educated pt \T\ family on fall prevention, incl call for assistance when getting out of bed, Assessed \T\ reinforced patient's understanding of fall precautions, Provided non-skid footwear, Hourly rounding (assess needs \T\ fall precautionary measures) done, Used ambulatory aids as needed (educated on \T\ assisted with), Used gait belt as appropriate. Assessment: 18:20 General: Appears in no apparent distress. Behavior is calm, cooperative. Pain: Denies iw pain. Neuro: Level of Consciousness is awake, alert, obeys commands, Oriented to person, place, time, situation, Moves all extremities. Full function Reports dizziness. Cardiovascular: Patient's skin is warm and dry. Respiratory: Respiratory effort is even, unlabored, Respiratory pattern is regular, symmetrical. GI: Abdomen is non-distended, Reports nausea, vomiting. Derm: Skin is intact, is healthy with good turgor. 19:15 Reassessment: Patient appears in no apparent distress at this time. Patient and/or jb4 family updated on plan of care and expected duration. Pain level reassessed. Patient is alert, oriented x 3, equal unlabored respirations, skin warm/dry/pink. 20:30 Reassessment: Patient appears in no apparent distress at this time. Patient and/or jb4 family updated on plan of care and expected duration. Pain level reassessed. Patient is alert, oriented x 3, equal unlabored respirations, skin warm/dry/pink. D/c pending completion of IV fluids. Vital Signs: 17:35 BP 198 / 101; Pulse 71; Resp 17; Temp 97.4; Pulse Ox 100% ; ll1 18:20 BP 224 / 81; Pulse 62; Resp 16; Pulse Ox 100% on R/A; iw 19:12 BP 220 / 77; Pulse 71; Resp 21; Pulse Ox 100% on R/A; jb4 20:30 BP 185 / 78; Pulse 71; Resp 18; Pulse Ox 100% on R/A; jb4 21:13 BP 177 / 76; Pulse 78; Resp 17; Temp 98; Pulse Ox 99% on R/A; rv ED Course: 17:22 Patient arrived in ED. am2 17:37 Triage completed. ll1 17:39 Arm band placed on Patient placed in an exam room, on a stretcher. ll1 17:47 Franko York MD is Attending Physician. gale 18:00 Susie Capone, ALEXANDRA is Primary Nurse. iw 18:10 Patient has correct armband on for positive identification. Placed in gown. Bed in low mm9 position. Call light in reach. Side rails up X2. Adult w/ patient. Warm blanket given. Pulse ox on. NIBP on. 18:10 Missed attempt(s): 20 gauge in left antecubital area. mm9 18:15 EKG done, by ED staff, reviewed by Franko York MD. mm9 18:41 XRAY Chest (1 view) In Process Unspecified. EDMS 18:42 Head Brain Wo Cont CT In Process Unspecified. EDMS 21:15 No provider procedures requiring assistance completed. IV discontinued. rv Administered Medications: 18:58 Drug: Famotidine IVP 20 mg Route: IVP; Site: left antecubital; iw 19:02 Follow up: Response: No adverse reaction iw 18:58 Drug: Ondansetron IVP 4 mg Route: IVP; Site: left antecubital; iw 18:58 Drug: Labetalol IV 10 mg Route: IV; Rate: per protocol; Site: left antecubital; iw 21:14 Follow up: IV Status: Completed infusion rv 18:59 Drug: NS 0.9% IV 1000 ml Route: IV; Rate: 1 bolus; Site: left antecubital; iw 21:15 Follow up: IV Status: Completed infusion; IV Intake: 1000ml rv 19:11 CANCELLED (Duplicate Order): Labetalol IV 10 mg IV at per protocol once gale 19:20 Drug: Norvasc PO 5 mg Route: PO; jb4 21:14 Follow up: Response: No adverse reaction rv 19:22 Drug: Labetalol IV 20 mg Route: IV; Rate: per protocol; Infused Over: 2 mins; Site: jb4 left antecubital; 21:14 Follow up: IV Status: Completed infusion rv 19:33 Drug: Potassium Chloride IV 20 mEq Route: IV; Rate: per protocol; Site: left jb4 antecubital; 21:14 Follow up: IV Status: Completed infusion rv 20:04 Drug: Ondansetron IVP 4 mg Route: IVP; Site: left antecubital; jb4 21:14 Follow up: Response: No adverse reaction rv Medication: 18:21 VIS not applicable for this client. iw Intake: 21:15 IV: 1000ml; Total: 1000ml. rv Outcome: 20:01 Discharge ordered by . ms3 21:15 Discharged to home ambulatory, with family. rv 21:15 Condition: improved 21:15 Discharge instructions given to patient, Instructed on discharge instructions, follow up and referral plans. medication usage, Demonstrated understanding of instructions, follow-up care, medications, Prescriptions given X 2. 21:16 Patient left the ED. rv Signatures: Dispatcher [employer] EDMS Franko York MD MD cha Williams, Irene, RN Shree Mann RN RN jb4 Soraida Hilliard Ronaldo, RN RN rv Lewis, Lynsay, RN RN ll1 Robin Veloz DO DO ms3 Kate Lutz mm9
[2022-12-31 21:38] VITALS: BP 177/76; TEMP 98; O2SAT 99
--- NOTE | 2023-01-01 17:11 | EKG ---
Test Date: 2022-12-31 Test Time: 18:26:27 Manager Pacu: VALERI MEASUREMENT RESULTS: Intervals: Rate: 63 [place]: 102 QRSD: 86 QT: 450 QTc: 460 [place]: P: -15 [place]: 102 QRS: 44 T: 62 INTERPRETIVE STATEMENTS: Sinus rhythm with short [place] Otherwise normal ECG No previous ECG available for comparison Electronically Signed On 01-01-23 17:09:56 CDT by Florin Vee
== END 2022-12-31 21:16 | disposition home or self-care (01) ==
LOC: ER 17:20
DX: E87.6 Hypokalemia (principal); I10 Essential (primary) hypertension; Z88.5 Allergy status to narcotic agent
CPT/HCPCS: 96365; 93005; 85025; 80048; 36415; 83735; 85610; 80076; 84484; 83690; 83880; 70450; 71045; 96375; 99284; J3480; J2405 ×2; J7030